=== PATIENT | male | born 1970 | race Caucasian/White ===

== ENCOUNTER → 2022-09-08 15:13 | Outpatient (BNVA) | payer OTHER, SELFPAY | PROVIDERS: PCP Family Medicine; Visit Provider Internal Medicine Endocrinology, Diabetes & Metabolism | DX: Z13.89 Encounter for screening for other disorder (principal) ==

== ENCOUNTER 2023-09-11 13:58 | Outpatient (AMB) | payer OTHER, SELFPAY ==
--- NOTE | 2023-09-11 13:59 | MHC.OFFVIS ---
Vital Signs 09/11/23 14:00 Height 5 ft 10 in Weight 155 lb 10.342 oz BMI 22.3 BP 110/62 Blood Pressure Location Lt brachial Position Sitting Pulse 70 Pulse Source Pulse Oximeter Intake Visit Reasons: f/u microprolacinoma Intake Note: Patient presents today for Microprolacinoma follow up. Help Desk Coordinator Required: No Accompanied by: Self / Same As Patient Allergies Sulfa (Sulfonamide Antibiotics) Allergy (Unknown, Verified 09/11/23 14:06) Unknown amoxicillin Adverse Reaction (Unknown, Verified 09/11/23 14:06) Unknown ibuprofen Adverse Reaction (Unknown, Verified 09/11/23 14:06) FACE SWELLING Medication List - Last Reconciled 09/11/23 by Trevor Jones MD cetirizine (Zyrtec) 10 mg PO BEDTIME PRN melatonin 5 mg PO BEDTIME PRN sildenafil 50 mg PO DAILY terbinafine HCl mg PO HPI Comments Details: This is a 51-year-old white male with a history of a micro prolactinoma. Had breast developement in R nipple. No discharge Prolactin was discovered to be 35.6 with a 4 mm pituitary micro adenoma. Testosterone was 693. Patient galactorrhea. There is loss libido. No Problem with errection . Denies headache or loss of vision. Patient denies use of neuroleptics.No hx of hypothyroidism . Have 2 children age 18 , 22 [facility] Medical History (Updated 09/08/22 @ 15:26 by Trevor Jones MD) Prolactinoma Surgical History History of circumcision as Hx of colonoscopy Family History Paternal Grandmother Dementia Maternal Grandmother Dementia Father No known health problems Mother No known health problems Paternal Grandfather Alcohol abuse Maternal Grandfather Heart disease Maternal Aunt Malignant neoplasm metastatic to breast with unknown primary site Social History Household Members: Spouse and Children Household Members Other:: (prudencio), and 2 kids Almaz and Lang Alcohol intake: current Alcohol intake frequency: other Tobacco use type: Cigar Years Smoked: 1-2 cigars per year /unkown yrs smoked total e-Cigarette/Vaping Use: Never Used Physical Exam Vital Signs: Last Vital Signs Pulse 70 09/11/23 14:00 BP 110/62 09/11/23 14:00 BMI result Body Mass Index 22.3 Const Other: There is no loss of vision by gross confrontation. There are no acromegalic features. Thyroid gland is normal size weighs about 15 g. There are no thyroid nodules palpated. Lungs are clear to auscultation . Heart is S1-S2. Abdominal exam is benign. Examination of the chest reveals the absence of any breast masses or breast tissue or discharge. Assessment & Plan Assessment & Plan (1) Prolactinoma: Code(s): D35.2 - Benign neoplasm of pituitary gland Category: Medical Plan: This 52-year-old white male with a history of micro prolactinoma with slightly elevated prolactin levels but normal gonadal axis considering normal testosterone. Reasons for treatment of the high prolactin will include bothersome galactorrhea. Prolactin level remains stable Plan is for continued observation. There is no need to treat the elevated prolactin as patient is eugonadal and does not have galactorrhea. We can use of prolactin as a biomarker for size of adenoma and can image if prolactin increases or patient becomes symptomatic. There is some literature emergent recently that treating high prolactin itself may be beneficial but at this point would simply observe the slightly elevated prolactin Coding Level of Care Code Est Pt Level 3 (46208) Diagnoses Prolactinoma D35.2
[2023-09-11 14:00] VITALS: BP 110/62; PULSE 70; BMI 22.3
== END 2023-09-11 14:28 | disposition home or self-care (01) ==
PROVIDERS: PCP Family Medicine; Visit Provider Internal Medicine Endocrinology, Diabetes & Metabolism
DX: D35.2 Benign neoplasm of pituitary gland (principal)
CPT/HCPCS: 99213

== ENCOUNTER → 2023-09-11 13:58 | Outpatient (BNVA) | payer OTHER, SELFPAY | PROVIDERS: Visit Provider Internal Medicine Endocrinology, Diabetes & Metabolism ==

== ENCOUNTER 2024-04-02 12:54 | Outpatient (AMB) | payer OTHER, SELFPAY ==
--- NOTE | 2024-04-02 12:57 | MHC.OFFVIS ---
Vital Signs 04/02/24 13:00 Height 5 ft 10 in Weight 159 lb 6.307 oz BMI 22.9 BP 112/64 Blood Pressure Location Lt brachial Position Sitting Pulse 57 Pulse Source Pulse Oximeter Intake Visit Reasons: f/u hyperprolactinemia-confirmed Intake Note: Patient present today for Hyperprolactinemia follow up. Chicle Grinder Feeder Required: No Accompanied by: Self / Same As Patient Allergies Sulfa (Sulfonamide Antibiotics) Allergy (Unknown, Verified 04/02/24 13:01) Unknown amoxicillin Adverse Reaction (Unknown, Verified 04/02/24 13:01) Unknown ibuprofen Adverse Reaction (Unknown, Verified 04/02/24 13:01) FACE SWELLING HPI Comments Details: This is a 53-year-old white male with a history of a micro prolactinoma. Had breast developement in R nipple. No discharge Prolactin was discovered to be 35.6 with a 4 mm pituitary micro adenoma. Testosterone was 693. Patient denies galactorrhea. There is loss libido. No Problem with errection . Denies headache or loss of vision. Patient denies use of neuroleptics.No hx of hypothyroidism . Have 2 children age 18 , 22 [facility] Medical History (Updated 09/08/22 @ 15:26 by Trevor Jones MD) Prolactinoma Surgical History History of circumcision as Hx of colonoscopy Family History Paternal Grandmother Dementia Maternal Grandmother Dementia Father No known health problems Mother No known health problems Paternal Grandfather Alcohol abuse Maternal Grandfather Heart disease Maternal Aunt Malignant neoplasm metastatic to breast with unknown primary site Social History Household Members: Spouse and Children Household Members Other:: (prudencio), and 2 kids Almaz and Lang Alcohol intake: current Alcohol intake frequency: other Tobacco use type: Cigar Years Smoked: 1-2 cigars per year /unkown yrs smoked total e-Cigarette/Vaping Use: Never Used Physical Exam Const Other: There is no loss of vision by gross confrontation. Assessment & Plan Assessment & Plan (1) Prolactinoma: Code(s): D35.2 - Benign neoplasm of pituitary gland Category: Medical Plan: This 53-year-old white male with a history of micro prolactinoma with slightly elevated prolactin levels but normal gonadal axis considering normal testosterone. Reasons for treatment of the high prolactin will include bothersome galactorrhea. Prolactin level remains stable Plan is for continued observation. There is no need to treat the elevated prolactin as patient is eugonadal and does not have galactorrhea. We can use of prolactin as a biomarker for size of adenoma and can image if prolactin increases or patient becomes symptomatic. Orders: Orders Testosterone, Free/Total Today D35.2 - Benign neoplasm of pituitary gland Coding Level of Care Code Est Pt Level 3 (99696) Diagnoses Prolactinoma D35.2
[2024-04-02 13:00] VITALS: BP 112/64; PULSE 57; BMI 22.9
== END 2024-04-02 13:17 | disposition home or self-care (01) ==
PROVIDERS: PCP Family Medicine; Visit Provider Internal Medicine Endocrinology, Diabetes & Metabolism
DX: D35.2 Benign neoplasm of pituitary gland (principal)
CPT/HCPCS: 99213

== ENCOUNTER 2024-09-30 12:59 | Outpatient (AMB) | payer OTHER, SELFPAY ==
--- NOTE | 2024-09-30 13:01 | A.OFFVIS_ITS ---
Vital Signs 09/30/24 13:04 Height 5 ft 10 in Weight 156 lb 4.924 oz BMI 22.4 BP 102/64 Blood Pressure Location Lt brachial Position Sitting Pulse 65 Pulse Source Pulse Oximeter Pulse Oximetry (%) 96 Oxygen Delivery Method Room Air Intake Visit Reasons: f/u hyperprolactinemia Intake Note: Patient present today for Hyperprolactinemia follow up. Medical Office Technology Instructor Required: No Accompanied by: Self / Same As Patient Allergies Sulfa (Sulfonamide Antibiotics) Allergy (Unknown, Verified 09/30/24 13:04) Unknown amoxicillin Adverse Reaction (Unknown, Verified 09/30/24 13:04) Unknown ibuprofen Adverse Reaction (Unknown, Verified 09/30/24 13:04) FACE SWELLING Medication List - Last Reconciled 09/30/24 by Trevor Jones MD fexofenadine (Judy Allergy) 180 mg PO Q24H melatonin 5 mg PO BEDTIME PRN sildenafil 50 mg PO DAILY HPI Comments Details: This is a 53-year-old white male with a history of a micro prolactinoma. Had breast developement in R nipple. No discharge Prolactin was discovered to be 35.6 with a 4 mm pituitary micro adenoma. Testosterone was 693. Patient denies galactorrhea. There is loss libido. No Problem with errection . Denies headache or loss of vision. Patient denies use of neuroleptics.No hx of hypothyroidism . Have 2 children age 18 , 22 The patient is a 53-year-old male presenting with hyperprolactinemia and a pituitary microadenoma identified previously. The current reason for the visit is the monitoring of prolactin levels and possible growth of the adenoma. The prolactin level recently increased from 35.6 ng/mL to 46 ng/mL. The patient remains asymptomatic concerning any negative clinical impact from this rise, such as headaches, vision changes, or libido issues. Headaches mentioned are not frequent and are thought to be related to caffeine consumption. His adenoma has not been reassessed via MRI for the past two years. - Neurological: Denies unusual headaches, loss of vision. - Endocrine: Denies libido issues, breast discharge, acromegaly symptoms such as enlargement of extremities or excessive sweating. [facility] Medical History (Updated 09/08/22 @ 15:26 by Trevor Jones MD) Prolactinoma Surgical History History of circumcision as Hx of colonoscopy Family History Paternal Grandmother Dementia Maternal Grandmother Dementia Father No known health problems Mother No known health problems Paternal Grandfather Alcohol abuse Maternal Grandfather Heart disease Maternal Aunt Malignant neoplasm metastatic to breast with unknown primary site Social History Household Members: Spouse and Children Household Members Other:: (prudencio), and 2 kids Almaz and Lang Alcohol intake: current Alcohol intake frequency: other Tobacco use type: Cigar Years Smoked: 1-2 cigars per year /unkown yrs smoked total e-Cigarette/Vaping Use: Never Used Physical Exam Const Other: There is no loss of vision by gross confrontation. There are no acromegalic features Assessment & Plan Assessment & Plan (1) Prolactinoma: Code(s): D35.2 - Benign neoplasm of pituitary gland Category: Medical Plan: This 53-year-old white male with a history of micro prolactinoma with slightly elevated prolactin levels but normal gonadal axis considering normal testosterone. Reasons for treatment of the high prolactin will include bothersome galactorrhea. Prolactin level remains stable with slight increase suggesting stability of the adenoma Plan is for continued observation. There is no need to treat the elevated prolactin as patient is eugonadal and does not have galactorrhea. We can use of prolactin as a biomarker for size of adenoma and can image if prolactin increases or patient becomes symptomatic. We will talk to patient about repeating another MRI of the pituitary agrees to do so. We will also check an IGF-1 level to rule out the unlikely event of course secretion of growth hormone although the patient has no features or symptoms of acromegaly. 1. Pituitary Microadenoma The patient has a known 4 mm pituitary microadenoma. With increased prolactin levels and no symptoms, further imaging via MRI is considered to rule out significant growth of the adenoma. The patient and I discussed obtaining a new MRI to ensure adenoma stability for reassurance and better future management gianfranco nning. 2. Hyperprolactinemia The patient's prolactin level has risen mildly, though currently without causing clinical symptoms or affecting testosterone levels. Continued monitoring of symptoms is advised, and MRI imaging will guide management based on any evidence of adenoma growth or stability. I discussed the patient's current prolactin levels and the importance of monitoring the pituitary adenoma. While there is a slight increase in prolactin, the patient shows no symptoms indicative of adenoma complications, such as headaches, vision changes, or endocrine dysfunction. I informed the patient about the option of MRI imaging at this point to determine if there has been any significant change since the last scan. We reviewed the potential for adenoma growth despite limited clinical risk given its 4 mm size. Furthermore, I advised immediate contact if new symptoms such as breast discharge, significant headaches, or vision changes develop. The patient was informed that while current clinical stability suggests no immediate intervention, further diagnostic imaging through MRI will clarify any necessary treatment or continued observational monitoring. - Monitor for any new symptoms such as headaches, vision changes, or nipple discharge and contact me if they occur. - Follow up with an MRI as discussed for updated evaluation of the pituitary adenoma. - Maintain awareness of prolactin test results for ongoing monitoring. - Notify me if any concerns arise before the next scheduled follow-up. - The patient had an opportunity to ask questions regarding treatment plan. The qasim linares expressed understanding and agreement with the above treatment plan. Patient was informed and verbally consented to the use of an ambient scribe for clinic note documentation during this visit. Orders: Orders IGF-1 (Somatomedin C) Today D35.2 - Benign neoplasm of pituitary gland MR head/brain wo/w con Today D35.2 - Benign neoplasm of pituitary gland Coding Level of Care Code Est Pt Level 3 (81233) Diagnoses Prolactinoma D35.2
[2024-09-30 13:04] VITALS: BP 102/64; PULSE 65; O2SAT 96; BMI 22.4
--- OUTSIDE RECORDS SUMMARY | 2024-09-30 14:03 | XMS_ITS | Clinical Summary ---
Author Organization [facility] [employer] [facility] [employer] Address [address] [place] [address] Care Team Providers Care Sql Manager Name Role Phone No, Pcp FOOD AND NUTRITION PROFESSOR Primary Care Provider Unavailabl e Social History Tobacco Use Types Packs/Day Years Used Date Smoking Tobacco: Never Assessed Sex and Gender Information Value Date Recorded Sex Assigned at Not on file Legal Sex Male 8:15 PM EST Gender Identity Not on file Sexual Orientation Not on file Plan of Treatment Health Maintenance Due Date Last Done Comments Colorectal Cancer: COLONOSCO PY Screening every 10 yrs (or Modifier) 1970 Depression: Screening Annual ly using PHQ-2/9 in Adults 18 yrs or above (or HM Modifier)([facility]) 1988 Hepatitis C Virus Infection in Adolescents and Adults: Screening (or Modifier) ([facility]) 1988 SDOH Screening Reminder: Fiona murphy for all adults ([facility]) 1988 Tobacco Smoking Cessation: i n Adults excluding Women: Behavioral and Pharmacotherapy Interventions ([facility]) 1988 Lipid Screening: Every 5 yrs for Men aged 35+ (or HM Modifier) ([facility]) 2006 Colorectal Cancer Screening 45 -75 Yrs (or HM Modifier) 11/24/2015 Colorectal Cancer: FLEXIBLE SIGMOIDOSCOPY Screening every 5 yrs 11/24/2015 Colorectal Cancer: Fecal Immunochemical Test (FIT) Annually [facility] 11/24/2015 Colorectal Cancer: High-sens itivity gFOBT Screening Annually [facility] 11/24/2015 Colorectal Cancer: Stool Col oguard Screening every 3 yrs 11/24/2015 Colorectal Cancer:CT Colonog bartolome Screening every 5 yrs 11/24/2015 Pneumococcal Vaccination Scr eening: Patients 50+ yrs of age ([facility]) (1 of 1 - PCV) 2020 Zoster/Shingles Vaccine Seri es Screening: Adults aged 18+ yrs (or HM Modifiers)([facility]) (1 of 2) 2020 COVID-19 Vaccine Screening: Initial Series and Booster Status ([facility]) ( - 2023- season) 2024 03/31/2021, 09/14/2020, 08/17/2020 Flu Vaccination: Yearly for ages 18mos through 64 years (or Modifier)([facility] ) 12/12/2024 01/28/2020, 9 DTaP/Tdap/Td Vaccines ([facility]) (2 - Td or Tdap) 12/13/2028 12/13/2018 Medical Devices Not on file Insurance [employer] Care Teams Sql Manager Relationship Specialty Start Date End Date No, Pcp, FOOD AND NUTRITION PROFESSOR N/A Do not use PCP - General Family Medicine 06/06/20
--- OUTSIDE RECORDS SUMMARY | 2024-09-30 14:03 | XMS_ITS | Clinical Summary ---
Author Organization [facility] Address [address] [place] [address] Care Team Providers Care Shipfitters Supervisor Name Role Phone Unavailable Primary Care Provider Unavailabl e Source Comments PLEASE NOTE, if this patient is a minor, it may be UNLAWFUL to discuss sensitive information that is contained in these records (such as FAMILY PLANNING, MENTAL HEALTH or SUBSTANCE ABUSE) with the minor patient's parent or other person without the patient's specific authorization.[facility] Immunizations Immunization Administration Dates Next Due Moderna COVID-19 Vaccine, re d cap blue label, 12+ Primary Series 09/14/2020,08/17/2020 Social History Tobacco Use Types Packs/Day Years Used Date Smoking Tobacco: Never Assessed Social Connections Answer Date Recorded Social Connections and Isolation 0 08/17/2020 Financial Resource Strain Answer Date R ecorded Financial Resource Strain 0 2020 Stress Answer Date Recorded Stress 0 08/17/2020 Physical Activity Answer Date Recorded Physical Activity 0 08/17/2020 Food Insecurity Answer Date Recorded Food 0 08/17/2020 Transportation Needs Answer Date Record ed Transportation 0 08/17/2020 Housing Stability Answer Date Recorded Housing 0 08/17/2020 Safety and Environment Answer Date Cristofer rded Safety 0 08/17/2020 Utilities Answer Date Recorded Utilities 0 08/17/2020 Employment Answer Date Recorded Employment 0 08/17/2020 Sex and Gender Information Value Date Recorded Sex Assigned at Not on file Legal Sex Male 6:04 AM PDT Gender Identity Not on file Sexual Orientation Not on file Plan of Treatment Health Maintenance Due Date Last Done Comments Anxiety Screening 1970 Diabetes Screening 1970 Hepatitis C Screening 1970 Lipid Screening 1970 Tobacco Screening 1970 HIV Screening 1985 Hypertension Screening (#1) 1988 Imm-Hepatitis B (1 of 3 - 19 + 3-dose series) 1989 CT Colonography 11/24/2015 Colonoscopy 11/24/2015 Colorectal Cancer Screening 11/24/2015 FIT/gFOBT 11/24/2015 Fecal DNA 11/24/2015 Flexible Sigmoidoscopy 11/24/2015 Imm-Zoster, Recombinant (1 of 2) 2020 [id number] (3 - season) 2024 021, 08/17/2020 Imm-Influenza (#1) 2024 01/28/2020, 0 01/23/2019, 02/07/2017, Additional history exists Alcohol and Drug Screen 05/14/2024 Depression Annual Screen 05/14/2024 Imm-DTaP/Tdap/Td (2 - Td or Tdap) 12/13/2028 019, 05/14/2006 Insurance [facility] Member Subscriber Plan / Payer (Ef fective 2015-Present) Name:León Asif Relation to Subscriber:Self Name:León Asif Payer ID:[id number] Group ID:Not on file Type:Indemnity Address: [address] [place] [address]
--- OUTSIDE RECORDS SUMMARY | 2024-09-30 14:03 | XMS_ITS ---
Author Organization [facility] Address [address] [place] [address] Care Team Providers Care Benefits Director Name Role Phone Tyrell Stovall Primary Care Provider Unavailabl e Black, Mara Unavailable [phone] Allergies Allergen (clinical drug ingredient) Drug/Non Drug Allergy documented on EMR Reaction Allergy Type Onset Date Status ibuprofen Advil hives Drug Allergy Active Motrin hives Drug Allergy Active amoxicillin Amoxicillin hives Drug Allergy Act lacey Penicillin hives Drug Allergy Active Substance with sulfonamide structure and antibacterial mechanism of action (substance) Sulfa Antibiotics hives Drug Allergy Active REASON FOR VISIT Painful nail(s) aggrevated by shoes causing difficulty standing/walking Medications Medication SIG (Take, Route, Frequency, Duration) Notes Start Date End Date Status Terbinafine HCl 250 MG 1 tablet Orally O nce a day for 7 days days then stop for 3 weeks repeat cycle for 90 days PRN 06/06/2023 Not-Taking Melatonin 3-5MG Active ZyrTEC 5MG Not-Taking Benadryl prn Not-Taking Judy Active Social History Tobacco Use: Social History Observation Description Date Details (start date - stop date) Never Smoker NA - NA Alcohol Screen Question Answer Notes Did you have a drink contain ing alcohol in the past year? Yes How often did you have a dri nk containing alcohol in the past year? 2 to 4 times a month (2 points) Points 2 Interpretation Negative Tobacco use other than smoking: Question Answer Notes Are you an other tobacco user? No Tobacco Control (Standard) Question Answer Notes Tobacco use: Nonsmoker Additional Findings: Tobacco non-user Current no nsmoker Vital Signs Height 5FT 10IN in 07/01/2024 Weight 155 lbs 07/01/2024 BMI 22.24 kg/m2 07/01/2024 Blood pressure systolic 126 mm Hg 07/01/19 25 Blood pressure diastolic 70 mm Hg 025 Encounters Encounter Location Date Provider Diagnosis [facility] [address] 07/01/2024 Mara Wolff Pain in right toe(s) M79.674 and Tinea unguium B35.1 Assessments Encounter Date Diagnosis (ICD Code) Assessment Notes Treatment Notes Treatment Clinical Notes Section Notes 07/01/2024 Pain in right toe(s) (ICD-10 - M79.674) 07/01/2024 Tinea unguium (ICD-10 - B35.1) Plan Of Treatment Next Appt Details Follow Up: prn, Reason: Progress Notes * Laura ASIFOB:1970 ( 53 yo M)Acc No.[id number]:07/01/2024 Progress Note Patient:?YEFRI León Provider:?Mara Wolff DPM :1970???Age:53 Y???Sex:Male Sreekanth e:07/01/2024 Address:[address] [place] [id number] Pcp:Tyrell Stovall Subjective: * Chief Complaints: * ???Painful nail(s) aggrevate d by shoes causing difficulty standing/walking * HPI: ???Painful Nails:?Pt States Last PCP Visit:?Date:?06/16/2024 ?Course:?improved , 80%.?Treatments:?fungi cure (presently still using) , Lamisil , Pulse Dose PO Antifungal Treatment ,Pt finished the medication 04/2024.? * ROS:?General/Constitutional:?Nausea?denies.?Vomiting?denies.?Hunger Thirst?denies.?Loss appetite?denies.?Chills?denies.?Fatigue?denies.?Fever?denies.?Night Sweats?denies.?Unexplained weight loss?denies.?Unexplained weight gain?denies.?HEENTM:?Dentures?denies.?Dizziness?denies.?Glasses/contacts?denies.?Retinopathy?de nies.?Blurred/double vision?denies.?TMJ?denies.?Discharge/drainage?denies.?Implants?denies.?Sore throat?denies.?Dental implants?denies.?Hard of hearing ?denies.?Difficulty chewing/swallowing/speaking?denies.?Nose bleeds?denies.?Sore mouth?denies.?Respiratory:?On Oxygen?denies.?Pneumonia/pleurisy?denies.?Bronchitis?denies.?Emphysema?denies.?C oughing?denies.?Cough blood?denies.?Shortness of breath?denies.?Wheezing?denies.?Cardiovascular:?Pacemaker?denies.?MVP?denies.?WPW?denies.?CHF?denies.?Heart attack?denies.?Septal defect?denies.?Rapid beat?denies.?Chest pain ?denies.?Atrial Fib.?denies.?Murmur/Palpitations?denies.?Gastrointestinal:?Hemorrhoids?denies.?Stomach/Abdominal pain?denies.?Dark blood stool?denies.?Irritable bowel ?denies.?Constipation?denies.?Diarrhea?denies.?Hematology:?Swelling?denies.?Clots?denies.?Varicose Veins?denies.?Bruising?denies.?Bleeding problem?denies.?Genitourinary:?Blood urine?denies.?Frequent/Painfu/urination/bladder control?denies.?Kidney stones?denies.?Infection (UTI)?denies.?Nephropathy?denies.?sex trans dis (STD)?denies.?Prostate?denies.?Musculoskeletal:?Hammertoes?admits.?Bunions?denies.?Back Pain?denies.?Muscle Cramps/ Resting?denies.?Muscle cramps / walking?denies.?Generalized aches and pains?denies.?Weakness?denies.?Integ.:?Reid?denies.?Scars?denies.?Corns/calluses?denies.?Ingrown nails?denies.?Painful nails?admits.?Open Sores?denies.?Rashes?denies.?Neurologic:?Difficulty sleeping?denies.?Brain disorder?denies.?Numbness?denies.?Balance trouble?denies.?Confusion?denies.?Fainting/blackouts?denies.?Tingling?denies.?Tr emors?denies.? * Medical History:? * Surgical History:?hemorrhoid ectomy 07/2022 * Hospitalization/Major Diagno stic Procedure:?No Hospitalization History. * Family History:?Mother: bahman iraheta.?Father: alive.?Spouse: alive.?Maternal Grand Father: diagnosed with Unspecified essential hypertension.? * Social History:?Tobacco Use:?Tobacco use other than smoking?Are you an other tobacco user??No ?Tobacco Control (Standard)?Tobacco use:?Nonsmoker ?Additional Findings: Tobacco non-user?Current nonsmoker ???Drugs/Alcohol:?Drugs?Have you used drugs other than those for medical reasons in the past 12 months??No ?Alcohol Screen?Did you have a drink containing alcohol in the past year??Yes ?How often did you have a drink containing alcohol in the past year??2 to 4 times a month (2 points) ?Points?2 ?Interpretation?Negative ???Miscellaneous:?Caffeine: no. ?Exercise: yes, outdoor activities. ?Marital status: . 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 * Medications:?TakingAllegra M elatonin , Notes to Pharmacist: 3-5MGTaking Judy Taking Melatonin , Notes to Pharmacist: 1-2DGHpg-Ecvqzi/PRNTerbinafine HCl 250 MG Tablet 1 tablet Orally Once a day for 7 days days then stop for 3 weeks repeat cycle , Notes to Pharmacist: PRNBenadryl , Notes to Pharmacist: prnZyrTEC , Notes to Pharmacist: 5MGMedication List reviewed and reconciled with the patientNot- Taking/PRN Terbinafine HCl 250 MG Tablet 1 tablet Orally Once a day for 7 days days then stop for 3 weeks repeat cycle , Notes to Pharmacist: PRNNot-Taking/PRN Benadryl , Notes to Pharmacist: prnNot-Taking/PRN ZyrTEC , Notes to Pharmacist: 5MGMedication List reviewed and reconciled with the patient * Allergies:?Penicillin: hives Sulfa Antibiotics: hivesAdvil: hivesMotrin: hivesAmoxicillin: hivesyes[Allergies Verified] Objective: * Vitals:?Ht: 5FT 10IN, Wt:155 , BMI:22.24, Shoe size: 9, BP:126/70mm Hg, Ht-cm: 177.8 cm, Wt-k.31 kg. * Examination: ???General Examination: ?GENERAL APPEARANCE:?Reveals a pleasant, alert, well nourished, well- developed, well hydrated individual, who demonstrates proper attention to hygiene/body habitus, and is in no acute distress, Pt serves as own historian for office visit today.?Vascular: ?DP PULSES (B):?3/4, B/L.?PT PULSES (B):?3/4, B/L.?Dermatologic: ?SKIN FINDINGS:?Skin exam reveals normal color, texture, elasticity, and turgor. There are no masses, nor excrescences. The interspaces are clear, B/L.?Nails: ?NAILS are:?Elongated, overgrown, dystrophic, lytic, greater than 3mm thick, discolored and friable with crumbly malodorous subungual debris, with pain on palpation , T5, proximal clearing of nail approximately 80?all other nails not described with characteristics as possessing mycosis are 100% clear.? Assessment: * Assessment: 1.?Pain in right toe(s) - M7 9.674???2.?Tinea unguium - B35.1 (Primary)??? Plan: * Treatment: * Procedure Codes:? * Preventive Medicine:? ??Counseling:?Discussion:?-12: Office or other outpatient visit for the evaluation and management of an established patient, which required a medically appropriate history and/or examination and STRAIGHTFORWARD level of MEDICAL DECISION MAKING, 1 SELF-LIMITED OR MINOR PROBLEM, MINIMAL- NO AMOUNT/COMPLEXITY OF DATA TO BE REVIEWED/ANALYZED, AND MINIMAL RISK OF COMPLICATION/MORBIDITY. The visit on the day of the encounter encompassed interpreting the data and educating the patient as to the nature of their condition, treatment options available according to their individual PMH, meds, allergies, and overall health/living conditions, as well as any potential risks or complications that may occur from a failure to adhere to, and participate in, the recommended course of therapy. The discussion included a complete verbal, and/or written explanation of the examination results, any x-rays taken, the proposed diagnosis, and outline of the treatment plan. A schedule for future care needs was also explained. The patient verbalized an understanding of the instructions at this time and agreed to be an active participant in their treatment. If the patient should think of any questions or concerns after the visit, I have encouraged the patient to call the office, Given recent successful results to treatment, The patient wishes to continue with the present treatment plan for their condition and apply topical medication till T5 has complete resolution.? ??Screening/Special Tests:?Fall Risk?Screening:?No falls in the past year ?FALLS: Screening for Future Fall Risk?Have you had any falls with injury in the past year??No * Follow Up:?prn * Images: * Sign off status: Completed true * Provider:?MARU StricklandM Date:?2024 Generated for Avinash ballesteros/Ebenezer/eTleonardsmitting on:?09/30/2024 02:03 PM EDT History and Physical Notes * HPI (History of Present Illness) Category Sub-Category Detail Notes Category Not es Painful Nails Course: improved , 80% Treatments: fungi cure (presentl y still using) , Lamisil , Pulse Dose PO Antifungal Treatment ,Pt finished the medication 04/2024 Pt States Last PCP Visit: Date:: 06/16/2024 Examination Category Sub-Category Detail Notes Category Not es Dermatologic SKIN FINDINGS: Skin exam reveal s normal color, texture, elasticity, and turgor. There are no masses, nor excrescences. The interspaces are clear, B/L Orthopedic FOOTWEAR EVALUATION: DIGITAL DEFORMITIES: General Examination GENERAL APPEARANCE: Reveals a pleasant, alert, well nourished, well-developed, well hydrated individual, who demonstrates proper attention to hygiene/body habitus, and is in no acute distress, Pt serves as own historian for office visit today Vascular DP PULSES (B): 3/4, B/L PT PULSES (B): 3/4, B/L Nails NAILS are: Elongated, overg rown, dystrophic, lytic, greater than 3mm thick, discolored and friable with crumbly malodorous subungual debris, with pain on palpation , T5, proximal clearing of nail approximately 80 all other nails not described with characteristics as possessing mycosis are 100% clear
--- OUTSIDE RECORDS SUMMARY | 2024-09-30 14:03 | XMS_ITS | Patient Health Record ---
Author Organization [facility] Address [address] [place] [address] Care Team Providers Care Manager Fund Name Role Phone Tyrell Stovall Primary Care Provider Unavailabl e Black, Mara Unavailable [phone] Allergies Allergen (clinical drug ingredient) Drug/Non Drug Allergy documented on EMR Reaction Allergy Type Onset Date Status ibuprofen Advil hives Drug Allergy Active Motrin hives Drug Allergy Active amoxicillin Amoxicillin hives Drug Allergy Act lacey Penicillin hives Drug Allergy Active Substance with sulfonamide structure and antibacterial mechanism of action (substance) Sulfa Antibiotics hives Drug Allergy Active Reason For Referral No Information Medications Medication SIG (Take, Route, Frequency, Duration) [...] Additional Findings: Tobacco non-user Current no nsmoker Problems Problem Type SNOMED Code ICD Code Onset Dates Problem Status W/U Status Risk Notes Problem Acquired hammer toe of right foot (6916807411106919 ) Other hammer toe(s) (acquired), right foot (M20.41) Active confirmed Response to treatment - Improvement Problem Localized, primary osteoarthritis of the ankle and/or foot (741180755) Arthritis of joint of lesser toe, right (M19.071) Active confirmed Vital Signs Blood pressure diastolic 70 mm Hg 07/01/2024 Height 5FT 10IN in 07/01/2024 Blood pressure systolic 126 mm Hg 07/01/2024 Weight 155 lbs 07/01/2024 BMI 22.24 kg/m2 07/01/2024 Encounters Encounter Location Date Provider Diagnosis [address] [address] 12/05/2023 Mara Black Pain in right toe(s) M79.674 ; Tinea unguium B35.1 ; Other hammer toe(s) (acquired), right foot M20.41 ; Arthritis of joint of lesser toe, right M19.071 and Pain in left toe(s) M79.[address] [address] 02/27/2024 Mara Black Pain in right toe(s) M79.674 ; Tinea unguium B35.1 ; Other hammer toe(s) (acquired), right foot M20.41 ; Arthritis of joint of lesser toe, right M19.071 and Pain in left toe(s) M79.[address] [address] 07/01/2024 Mara Black Pain in right toe(s) M79.674 and Tinea unguium B35.1 Assessments Encounter Date Diagnosis (ICD Code) Assessment Notes Treatment Notes Treatment Clinical Notes Section Notes 12/05/2023 Pain in right toe(s) (ICD-10 - M79.674) 02/27/2024 Pain in right toe(s) (ICD-10 - M79.674) 07/01/2024 Pain in right toe(s) (ICD-10 - M79.674) 07/01/2024 Tinea unguium (ICD-10 - B35.1) 12/05/2023 Other hammer toe(s) (acquired), right foot (ICD-10 - M20.41) 02/27/2024 Tinea unguium (ICD-10 - B35.1) 12/05/2023 Tinea unguium (ICD-10 - B35.1) 12/05/2023 Arthritis of joint of lesser toe, right (ICD-10 - M19.071) 02/27/2024 Other hammer toe(s) (acquired), right foot (ICD-10 - M20.41) 02/27/2024 Arthritis of joint of lesser toe, right (ICD-10 - M19.071) 12/05/2023 Pain in left toe(s) (ICD-10 - M79.675) 02/27/2024 Pain in left toe(s) (ICD-10 - M79.675) Plan Of Treatment Pending Test Test Name Order Date *Liver Function Test (LFT) 09/05/2023 Insurance Providers Payer Name Payer Address Payer Phone Subscriber Number Group Number Insured Name Patient Relationship to Insured Coverage Start Date Coverage End Date [facility] ([facility] [address] [place] [address] [id number] Brie Olivas Spouse - patient is the spouse of the insured Medical (General) History Medical History History ICD Code covid-19 Gout Warts Chicken pox Surgical History Surgery Date(Month/Year) hemorrhoidectomy 07/2022
--- OUTSIDE RECORDS SUMMARY | 2024-09-30 14:04 | XMS_ITS | Clinical Summary ---
Author Organization [facility] Address [address] [place] [id number] Phone Care Team Providers Care Bunch Trimmer Mold Name Role Phone Tyrell Stovall MD Primary Care Provider [phone] Allergies Active Allergy Reactions Criticality Noted Date Comments Amoxicillin Rash,Unknown Low 06/11/2013 Ibuprofen Swelling 10/14/2022 Sulfa (Sulfonamide Antibiotics) Unknown 05/15 Medications cetirizine (ZYRTEC) 10 MG tablet 5 mg daily. 08/04/2022 Active melatonin 5 mg Tab daily. Active Active Problems No known active problems Social History Tobacco Use Types Packs/Day Years Used Date Smoking Tobacco: Never Smokeless Tobacco: Never Tobacco Cessation:Counseling Given: Not Answered Alcohol Use Standard Drinks/Week Comments Yes 3 (1 standard drink = 0.6 oz pur e alcohol) Education Answer Date Recorded Are you interested in more education? Not on umu e 10/14/2022 Are you concerned about learning? Not on file 10/14/2022 No 10/14/2022 No 10/14/2022 Digital Access Answer Date Recorded No 10/14/2022 No 10/14/2022 Reliable internet access at home? Not on file 10/14/2022 Device with a working camera? Not on file Intimate Partner Violence Answer Date R ecorded Are you denied basic needs s uch as food, clothing, or medical care? No 10/14/2022 In the past 12 months have y ou been in a relationship with a person who hurts, threatens, or tries to control you? No 10/14/2022 Are you denied basic needs s uch as food, clothing, or medical care? No 10/14/2022 In the past 12 months have y ou been in a relationship with a person who hurts, threatens, or tries to control you? No 10/14/2022 Sex and Gender Information Value Date Recorded Sex Assigned at Not on file Legal Sex Male 5:18 PM EDT Gender Identity Not on file Sexual Orientation Not on file Last Filed Vital Signs Vital Sign Reading Time Taken Comments Blood Pressure 134/88 10/14/2022 5:28 PM EDT Pulse 53 10/14/2022 5:28 PM EDT Temperature 36.3 ??C (97.3 ??F) 10/14/2022 5:28 PM ED T Respiratory Rate 16 10/14/2022 5:28 PM EDT Oxygen Saturation 100% 10/14/2022 5:28 PM EDT Inhaled Oxygen Concentration - - Weight 70.3 kg (155 lb) 10/14/2022 5:28 PM EDT Height 177.8 cm (5' 10 ) 10/14/2022 5:28 PM EDT Body Mass Index 22.24 10/14/2022 5:28 PM EDT Plan of Treatment Health Maintenance Due Date Last Done Comments LIPID PANEL 1970 DEPRESSION SCREENING 1982 HEPATITIS B SCREENING 1988 HEPATITIS C SCREENING 1988 HIV ONE-TIME SCREENING (18-65 YEARS) 1988 HEPATITIS B VACCINES (1 of 3 - 19+ 3-dose series) 1989 COLOGUARD 11/24/2015 COLONOSCOPY 11/24/2015 COLORECTAL CANCER SCREENING 11/24/2015 FIT TEST 11/24/2015 FOBT 11/24/2015 SIGMOIDOSCOPY 11/24/2015 VIRTUAL COLONOSCOPY 11/24/2015 PNEUMOCOCCAL VACCINES (50+ years) (1 of 1 - PCV) 2020 ZOSTER VACCINES (1 of 2) 2020 INFLUENZA VACCINE (#1) 2023 , 02/10/2021, 01/28/2020, Additional history exists COVID-19 VACCINE ( season) 2024 02/10/2022, 03/31/2021, 09/14/2020, Additional history exists Adult Td,Tdap Booster 12/13/2028 12/13/2018, 007 SMOKING STATUS SCREENING (Once After 26 Yrs) Completed 10/14/2022 HEPATITIS A VACCINES Aged Out No long er eligible based on patient's age to complete this topic HIB VACCINES Aged Out No longer eligi ble based on patient's age to complete this topic MENINGOCOCCAL VACCINES (ACWY) Aged Out No longer eligible based on patient's age to complete this topic Medical Devices Not on file Insurance [employer] [facility] [employer] [facility] [employer] CHO[employer] Care Teams Bunch Trimmer Mold Relationship Specialty Start Date End Date Tyrell Stovall MD [address] [phone] PCP - General Family Medicine 10/14/22 Additional Source Comments The information contained in this document represents components of the legal health record. It is not the complete legal health record.[facility]
--- OUTSIDE RECORDS SUMMARY | 2024-09-30 14:04 | XMS_ITS | Encounter Summary ---
Author Organization [facility] Address [address] [place] [id number] Phone Care Team Providers Care Acute Care Registered Nurse Name Role Phone Tyrell Stovall MD Primary Care Provider [phone] Encounter Details Date Type Department Care Team ([facility] st Contact Info) Description 10/14/2022 Ophth Exam [facility] [address] [place] [address] Ari Miller MD, PhD [address] [place] [id number] [email or web address] Social History Tobacco Use Types Packs/Day Years Used Date Smoking Tobacco: Never Smokeless Tobacco: Never Alcohol Use Standard Drinks/Week Comments Yes 3 [...] on file Sexual Orientation Not on file documented as of this encounter Functional Status * Calculated C-SSRS Risk Score (Lifetime/Recent) Answer Date of Assessment Author No Risk Indicated 10/14/2022 5:26 PM EDT Alisha Wen RN * White Suicide Severity Rating Scale (Screener/Recent Self-Report) Question Answer Date of Assessment Author 1. Wish to be (Past 1 Month) No 10/14/2022 5:26 PM EDT Mary Lyles RN 2. Non-Specific Active Suicidal Thoughts (Past 1 Month) No 10/14/2022 5:26 PM EDT Mary Lyles RN 6. Suicidal Behavior (Lifetime) No 10/14/2022 5:26 PM EDT Mary Lyles RN documented as of this encounter Plan of Treatment Not on file documented as of this encounter Visit Diagnoses Not on filedocumented in this encounter Care Teams Acute Care Registered Nurse Relationship Specialty Start Date End Date Tyrell Stovall MD [address] [phone] PCP - General Family Medicine 10/14/22 documented as of this encounter Additional Source Comments The information contained in this document represents components of the legal health record. It is not the complete legal health record.[facility]
--- OUTSIDE RECORDS SUMMARY | 2024-09-30 14:04 | XMS_ITS ---
Author Organization [facility] Barneveld Address [address] [place] [address] Care Team Providers Care Software Development Engineer Name Role Phone Tyrell Stovall Primary Care Provider Unavailabl e Black, Mara Unavailable [phone] Allergies Allergen (clinical drug ingredient) Drug/Non Drug Allergy documented on EMR Reaction Allergy Type Onset Date Status ibuprofen Advil hives Drug Allergy Active Motrin hives Drug Allergy Active amoxicillin Amoxicillin hives Drug Allergy Act lacey Penicillin hives Drug Allergy Active Substance with sulfonamide structure and antibacterial mechanism of action (substance) Sulfa Antibiotics hives Drug Allergy Active REASON FOR VISIT Painful Toe(s), Painful nail(s) aggrevated by shoes causing difficulty standing/walking Medications Medication SIG (Take, Route, Frequency, Duration) Notes Start Date End Date Status ZyrTEC 5MG Not-Taking Terbinafine HCl 250 MG 1 tablet Orally O nce a day for 7 days days then stop for 3 weeks repeat cycle for 90 days PRN 06/06/2023 Active Judy Active Benadryl prn Not-Taking Melatonin 3-5MG Active Social History Tobacco Use: Social History Observation Description Date Details (start date - stop date) Never Smoker NA - NA Tobacco Use/Smoking Question Answer Notes Are you a: nonsmoker Additional Findings: Tobacco Non-User Current no n-smoker Alcohol Screen Question Answer Notes Did you have a drink contain ing alcohol in the past year? Yes How often did you have a dri nk containing alcohol in the past year? 2 to 4 times a month (2 points) Points 2 Interpretation Negative Tobacco use other than smoking: Question Answer Notes Are you an other tobacco user? No Vital Signs Weight 155 lbs 02/27/2024 BMI 22.24 kg/m2 02/27/2024 Encounters Encounter Location Date Provider [facility] [address] 02/27/2024 Mara Wolff Pain in right toe(s) M79.674 ; Tinea unguium B35.1 ; Other hammer toe(s) (acquired), right foot M20.41 ; Arthritis of joint of lesser toe, right M19.071 and Pain in left toe(s) M79.675 Assessments Encounter Date Diagnosis (ICD Code) Assessment Notes Treatment Notes Treatment Clinical Notes Section Notes 02/27/2024 Pain in right toe(s) (ICD-10 - M79.674) 02/27/2024 Tinea unguium (ICD-10 - B35.1) 02/27/2024 Other hammer toe(s) (acquired), right foot (ICD-10 - M20.41) 02/27/2024 Arthritis of joint of lesser toe, right (ICD-10 - M19.071) 02/27/2024 Pain in left toe(s) (ICD-10 - M79.675) Plan Of Treatment Next Appt Details Follow Up: prn, Reason: Progress Notes * Laura ASIFOB:1970 ( 53 yo M)Acc No.[id number]:02/27/2024 Progress Note Patient:?Yefri León Provider:?Mara Wolff DPM :1970???Age:53 Y???Sex:Male Sreekanth e:02/27/2024 Address:[address] [place], [place] [id number] Pcp:Tyrell Stovall Subjective: * Chief Complaints: * ???Painful Toe(s)Painful bartolo l(s) aggrevated by shoes causing difficulty standing/walking * HPI: ???Painful Nails:?Pt States Last PCP Visit:?Date:?06/27/2023 ?Course:?improved , unresolved.?Treatments:?fungi cure , Lamisil , Pulse Dose PO Antifungal Treatment , relates adherence to recom tx , (i.e. rash, hives, taste/GI disturbance, yellow skin/eye discoloration, discolored stools, or any other unusual bodily complaints) DOS- 05/2023.?Toe pain:?Nature:?tenderness.?Location:?Right foot , 4th toe.?Duration:?several months.?Course:?, improved , at _90? percent.?Aggravated by:?any pressure, shoes.?Treatments:?change in shoes , bracing/splinting/padding.? * ROS:?General/Constitutional:?Nausea?denies.?Vomiting?denies.?Hunger Thirst?denies.?Loss appetite?denies.?Chills?denies.?Fatigue?denies.?Fever?denies.?Night Sweats?denies.?Unexplained weight loss?denies.?Unexplained [...] Procedure:?No Hospitalization History. * Family History:?Mother: bahman carrillo?Father: alive.?Spouse: alive.?Maternal Grand Father: diagnosed with Unspecified essential hypertension.? * Social History:?Tobacco Use:?Tobacco Use/Smoking?Are you a:?nonsmoker ?Additional Findings: Tobacco Non-User?Current non-smoker ?Tobacco use other than smoking?Are you an other tobacco user??No ???Drugs/Alcohol:?Drugs?Have you used drugs other than those for medical reasons in the past 12 months??No ?Alcohol Screen?Did you have a drink containing alcohol in the past year??Yes ?How often did you have a drink containing alcohol in the past year??2 to 4 times a month (2 points) ?Points?2 ?Interpretation?Negative ???Miscellaneous:?no Caffeine. ?Exercise: yes, outdoor activities. ?Marital status: . 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 * Medications:?TakingAllegra Yfn crabtree , Notes: 3-5MGTerbinafine HCl 250 MG Tablet 1 tablet Orally Once a day for 7 days days then stop for 3 weeks repeat cycle, Notes: PRNTaking Judy Taking Melatonin , Notes: 3-5MGTaking Terbinafine HCl 250 MG Tablet 1 tablet Orally Once a day for 7 days days then stop for 3 weeks repeat cycle, Notes: PRNNot-Taking/PRNBenadryl , Notes: prnZyrTEC , Notes: 5MGMedication List reviewed and reconciled with the patientNot-Taking/PRN Benadryl , Notes: prnNot-Taking/PRN ZyrTEC , Notes: 5MGMedication List reviewed and reconciled with the patient * Allergies:?Penicillin: hives Sulfa Antibiotics: hivesAdvil: hivesMotrin: hivesAmoxicillin: hivesyes[Allergies Verified] Objective: * Vitals:?Wt:155, BMI:22.24, S hoe size:9, Ht-cm: 177.8 cm, Wt-k.31 kg. * Examination: ???General Examination: ?GENERAL APPEARANCE:?Reveals a pleasant, alert, well nourished, well- developed, well hydrated individual, who demonstrates proper attention to hygiene/body habitus, and is in no acute distress, Pt serves as own historian for office visit today.?Vascular: ?DP PULSES(B):?3/4, B/L.?PT PULSES(B):?3/4, B/L.?Dermatologic: ?SKIN FINDINGS:??Skin exam reveals Resolved? Keratotic lesion(s) located at , PIPJ , T8?.?Orthopedic: ?DIGITAL DEFORMITIES:?Digital contracture, PIPJ, 2-5 B/L, incompl-reducible with WB, or to push-up test, no over, nor underlapping , Reveals RESOLVED pain/swelling/redness/enlargement of PIPJ plantar lateral , T8.?Nails: ?NAILS are:?Elongated, overgrown, dystrophic, lytic, greater than 3mm thick, discolored and friable with crumbly malodorous subungual debris, with pain on palpation , 1-5 Right foot , 1,3-5 Left foot , proximal clearing of nail 85 percent.? Assessment: * Assessment: 1.?Pain in right toe(s) - M7 9.674?2.?Tinea unguium - B35.1 (Primary)?3.?Other hammer toe(s) (acquired), right foot - M20.41?4.?Arthritis of joint of lesser toe, right - M19.071?5.?Pain in left toe(s) - M79.675? Plan: * Treatment: * Procedure Codes:? * Preventive Medicine:? ??Counseling:?Discussion:?-13: Office or other outpatient visit for the evaluation and management of an established patient, which required a medically appropriate history and/or examination and LOW level of DECISION MAKING for: 1 STABLE ACUTE UNCOMPLICATED PROBLEM, 2 OR MORE MINOR PROBLEMS, OR 1 STABLE CHRONIC PROBLEM, THAT POSE(S) A LOW RISK FOR MORBIDITY/MORTALITY. The visit on the day of the [...] have encouraged the patient to call the office.?F/U Fungal nails:?Given recent successful results to treatment, The patient is to cont the rx topical medication and oral medications as directed till nail grows out, Nail debridement performed extensively to reduce/remove overall nail length and girth, subungual debris, and necrotic tissue, by manual and electrical means with use of a nail nipper and/or dremel, to more viable healthy nail plate or bed tissue. Silver nitrate used for any petechial bleeding as necessary.?F/u Visit:?Patients podiatric issue has improved, they should call the office with any future issues or concerns.? * Follow Up:?prn * Images: * Sign off status: Completed true * Provider:?Mara Wolff DPM Date:?2023 Generated for Avinash ballesteros/Ebenezer/Gabriella on:?09/30/2024 02:03 PM EDT History and Physical Notes * HPI (History of Present Illness) Category Sub-Category Detail Notes Category Not es Toe pain Nature: tenderness Location: Right foot , 4th toe Duration: several months Course: , improved , at _90 percent Aggravated by: any pressure, shoes Treatments: change in shoes , br acing/splinting/padding Painful Nails Course: improved , unresolved Treatments: fungi cure , Lamisil , Pulse Dose PO Antifungal Treatment , relates adherence to recom tx , (i.e. rash, hives, taste/GI disturbance, yellow skin/eye discoloration, discolored stools, or any other unusual bodily complaints) DOS- 05/2023 Pt States Last PCP Visit: Date:: 06/27/2023 Examination Category Sub-Category Detail Notes Category Not es Dermatologic SKIN FINDINGS: Skin exam reveal s Resolved Keratotic lesion(s) located at , PIPJ , T8 Orthopedic FOOTWEAR EVALUATION: DIGITAL DEFORMITIES: Digital contracture , PIPJ, 2-5 B/L, incompl-reducible with WB, or to push-up test, no over, nor underlapping , Reveals RESOLVED pain/swelling/redness/enlargement of PIPJ plantar lateral , T8 General Examination GENERAL APPEARANCE: Reveals a pleasant, [...] subungual debris, with pain on palpation , 1-5 Right foot , 1,3-5 Left foot , proximal clearing of nail 85 percent
--- OUTSIDE RECORDS SUMMARY | 2024-09-30 14:04 | XMS_ITS ---
Author Organization [facility] Address [address] [place] [address] Care Team Providers Care Tax Economist Name Role Phone Tyrell Stovall Primary Care Provider Unavailabl e Black, Mara Unavailable [phone] Allergies Allergen (clinical drug ingredient) Drug/Non Drug [...] difficulty standing/walking Medications Medication SIG (Take, Route, Fr equency, Duration) Notes Start Date End Date Status ZyrTEC 5MG Active Melatonin 3-5MG Active Terbinafine HCl 250 MG 1 tablet Orally O nce a day for 7 days days then stop for 3 weeks repeat cycle for 90 days 06/06/2023 Active Benadryl prn Active Social History Tobacco Use: Social History Observation Description Date Details (start date - stop date) Never Smoker NA - NA Tobacco Use/Smoking Question Answer Notes Are you a: nonsmoker Alcohol Screen Question Answer Notes Did you have a drink contain ing alcohol in the past year? Yes How often did you have a dri nk containing alcohol in the past year? 2 to 4 times a month (2 points) Points 2 Interpretation Negative Tobacco use other than smoking: Question Answer Notes Are you an other tobacco user? No Vital Signs Height 5ft 10in in 12/05/2023 Weight 155 lbs 12/05/2023 BMI 22.24 kg/m2 12/05/2023 Encounters Encounter Location Date Provider Diagnosis [facility] [address] 12/05/2023 Mara Wolff Pain in right toe(s) M79.674 ; Tinea unguium B35.1 ; Other hammer toe(s) (acquired), right foot M20.41 ; Arthritis of joint of lesser toe, right M19.071 and Pain in left toe(s) M79.675 Assessments Encounter Date Diagnosis (ICD Code) Assessment Notes Treatment Notes Treatment Clinical Notes Section Notes 12/05/2023 Pain in right toe(s) (ICD-10 - M79.674) 12/05/2023 Tinea unguium (ICD-10 - B35.1) 12/05/2023 Other hammer toe(s) (acquired), right foot (ICD-10 - M20.41) 12/05/2023 Arthritis of joint of lesser toe, right (ICD-10 - M19.071) 12/05/2023 Pain in left toe(s) (ICD-10 - M79.675) Plan Of Treatment Next Appt Details Follow Up: prn, Reason: Progress Notes * YEFRI LauraOB:1970 ( 53 yo M)Acc No.[id number]:12/05/2023 Progress Note Patient:?Brandy Asifh Provider:?Mara Wolff DPM :1970???Age:53 Y???Sex:Male Sreekanth e:12/05/2023 Address:[address] [place] [id number] Pcp:Tyrell Stovall Subjective: * Chief Complaints: * ???Painful Toe(s)Painful bartolo l(s) aggrevated by shoes causing difficulty standing/walking * HPI: ???Painful Nails:?Pt States Last PCP Visit:?Date:?06/27/2023 ?Course:?improved.?Treatments:?fungi cure , Lamisil , Pulse Dose PO Antifungal Treatment , relates adherence to recom tx , (i.e. rash, hives, taste/GI disturbance, yellow skin/eye discoloration, discolored stools, or any other unusual bodily complaints) DOS- 05/2023.?Toe pain:?Nature:?tenderness.?Location:?Right foot , 4th toe.?Duration:?several months.?Course:?recurrent,.?Aggravated by:?any pressure, shoes.?Treatments:?change in shoes , bracing/splinting/padding.? [...] Hospitalization History. * Family History:?Mother: bahman iraheta.?Father: alive.?Maternal Grand Father: diagnosed with Unspecified essential hypertension.? * Social History:?Tobacco Use:?Tobacco Use/Smoking?Are you a:?nonsmoker ?Tobacco use other than smoking?Are you an [...] yes, outdoor activities. ?Marital status: . 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 * Medications:?TakingBenadryl , Notes: prnMelatonin , Notes: 3-5MGZyrTEC , Notes: 5MGTerbinafine HCl 250 MG Tablet 1 tablet Orally Once a day for 7 days days then stop for 3 weeks repeat cycleMedication List reviewed and reconciled with the patientTaking Benadryl , Notes: prnTaking Melatonin , Notes: 3-5MGTaking ZyrTEC , Notes: 5MGTaking Terbinafine HCl 250 MG Tablet 1 tablet Orally Once a day for 7 days days then stop for 3 weeks repeat cycleMedication List reviewed and reconciled with the patient * Allergies:?Penicillin: hives Sulfa Antibiotics: hivesAdvil: hivesMotrin: hivesAmoxicillin: hivesyes[Allergies Verified] Objective: * Vitals:?Ht: 5ft 10in, Wt: 15 5, BMI:22.24, Shoe size: 9. * Examination: ???General Examination: ?GENERAL APPEARANCE:?Reveals a pleasant, alert, well nourished, well- developed, well hydrated individual, who demonstrates proper attention to hygiene/body habitus, and is in no acute distress, Pt serves as own historian for office visit today.?Vascular: ?DP PULSES:?3/4, B/L.?PT PULSES:?3/4, B/L.?Dermatologic: ?SKIN FINDINGS:??Skin exam reveals Keratotic lesion(s) located at , PIPJ , T8?Skin.?Orthopedic: ?DIGITAL DEFORMITIES:?Digital contracture, PIPJ, 2-5 B/L, incompl-reducible with WB, or to push-up test, no over, nor underlapping , Reveals pain/swelling/redness/enlargement of PIPJ plantar lateral , T8.?Nails: ?NAILS are:?Elongated, overgrown, dystrophic, lytic, greater than 3mm thick, discolored and friable with crumbly malodorous subungual debris, with pain on palpation , 1-5 Right foot , 1,3-5 Left foot , proximal clearing of nail 65 percent.? Assessment: * Assessment: 1.?Pain in right toe(s) - M7 9.674?2.?Other hammer toe(s) (acquired), right foot - M20.41?3.?Tinea unguium - B35.1 (Primary)?4.?Arthritis of joint of lesser toe, right - [...] have encouraged the patient to call the office.?Digital Treatment:?Recomm, rest, ice, proper shoegear, padding, orthotics, anti-inflammatories or tylenol as tolerated, topical analgesics, cortisone injections.?F/U Fungal nails:?Reviewed with the patient the time needed before we start seeing results with the oral Lamisil. Discussed the results that we hope to see and that cindy a topical medication to the nails may also help. We discussed the duration of time that the Lamisil will work on the nails for. We should wait 1 year before we take the Lamisil again., Nail debridement performed extensively to reduce/remove overall nail length and girth, subungual debris, and necrotic tissue, by manual and electrical means with use of a nail nipper and/or dremel, to more viable healthy nail plate or bed tissue. Silver nitrate used for any petechial bleeding as necessary.? * Follow Up:?prn * Images: * Sign off status: Completed true * Provider:?Mara Wolff DPM Date:?2023 Generated for Avinash ballesteros/Ebenezer/Gabriella on:?09/30/2024 02:04 PM EDT History and Physical Notes * HPI (History of Present Illness) Category Sub-Category Detail Notes Category Not es Toe pain Nature: tenderness Location: Right foot , 4th toe Duration: several months Course: recurrent, Aggravated by: any pressure, shoes Treatments: change in shoes , br acing/splinting/padding Painful Nails Course: improved Treatments: fungi cure , Lamisil , Pulse Dose PO Antifungal Treatment , relates adherence to recom tx , (i.e. rash, hives, taste/GI disturbance, yellow skin/eye discoloration, discolored stools, or any other unusual bodily complaints) DOS- 05/2023 Pt States Last PCP Visit: Date:: 06/27/2023 Examination Category Sub-Category Detail Notes Category Not es Dermatologic SKIN FINDINGS: Skin exam reveal s Keratotic lesion(s) located at , PIPJ , T8 Skin Orthopedic FOOTWEAR EVALUATION: DIGITAL DEFORMITIES: Digital contracture , PIPJ, 2-5 B/L, incompl-reducible with WB, or to push-up test, no over, nor underlapping , Reveals pain/swelling/redness/enlargement of PIPJ plantar lateral , T8 [...] Left foot , proximal clearing of nail 65 percent
--- OUTSIDE RECORDS SUMMARY | 2024-09-30 14:04 | XMS_ITS | Data Portability ---
Author Organization [place] - [facility], [employer] Address [address] [facility] [address] Assessment No assessment recorded. Plan of Treatment Reminders Order Date Submit Date Provider Last Modified By Organization Details Last Modified Time Details Appointments None recorded. Lab SARS CoV 2 RNA (COVID-19), QL, block handler-PCR, respiratory specimen 2022 023 srynders [facility] [place], [address] [facility] [address], [place], [address], 19:03:12 Referral None recorded. Procedures None recorded. Surgeries None recorded. Imaging None recorded. Medication Orders azithromyci n 250 mg tablet 2022 023 JENNIFER [id number], [address] [place], [id number], 3 15:07:44 dexamethaso ne 4 mg tablet 2022 023 [id number], [address] [place], [id number], 3 15:16:09 Paxlovid 300 mg (150 mg x 2)-100 mg tablets in a dose pack 2022 023 clindquis t9 [id number], [address] [place], [id number], 3 14:28:50 dexamethaso ne sodium phosphate 10 mg/mL injection solution 2022 023 [email or web address] t9 [facility] #[id number], [address] [place], [id number], 14:29:00 Patient TargetsNo targets recorded. Patient InstructionsNo instructions recorded. Reason for Referral None Reported. Results Created Date Observation Date Name Description Value Unit Range Abnormal Flag Note LastModifiedBy Organization Detail LastModifiedTime 01/01/20 23 12/31/2022 SARS CoV 2 RNA (COVI D-19) , QL, block handler-P CR, respi rator y speci men Covid 19 results positi ve Not Available [facility] [address] [place], [id number], 12/31/2022 18:25:25 Result Notes None recorded. Problems Name Problem SNOMED Code Status Onset Date Resolution Date Notes Provider Name and Address Organization Details Recorded Time Sinusitis 55310121 Active 023 ERICK Zamora - [facility]. 18:29:04 Problem Notes None recorded. Medical Equipment None Reported. Allergies Allergen ID Allergen Name Allergen Category Reaction Reaction Severity Criticality Documentation Date Start Date Code Code System Note Provider Name and Address Organization Details Recorded Time 26487 Product containin g penicilli n (product) medicatio n hives Not available high 12/31/2022 70812 8001 SNOMED ERICK Zamora - [facility]. 18:27:28 49292 Substance with sulfonami de structure and antibacte rial mechanism of action (substanc e) medicatio n hives Not available high 12/31/2022 16139 8003 SNOMED ERICK Zamora - [facility] 18:27:40 25553 Motrin medicatio n swelling Not available high 12/31/2022 54961 8 RxNorm ERICK Zamora - [facility] 18:27:56 25323 amoxicill in medicatio n Not available Not available Not available 01/05/2023 723 RxNorm ERICK Figueroa - [facility]. 14:37:03 Medications Name Sig Start Date Stop Date Status Note LastModified by Organization Details LastModified Time sildenafil 50 mg tablet TAKE 1 TABLET BY MOUTH EVERY DAY DIRECTED FOR 4 DAYS 12/31 completed Not Available Not Available Not Available azithromyci n 250 mg tablet TAKE 2 TABLETS (500 MG) BY ORAL ROUTE ONCE DAILY FOR 1 DAY THEN 1 TABLET (250 MG) BY ORAL ROUTE ONCE DAILY FOR 4 DAYS active Not Available Not Available No t Available dexamethaso ne 4 mg tablet TAKE 1 TABLET BY MOUTH DAILY FOR 3 DAYS active Not Available Not Available No t Available docusate sodium 100 mg capsule TAKE 1 CAPSULE BY MOUTH 2 TIMES A DAY NEEDED FOR CONSTIPAT ION 12/31 completed Not Available Not Available Not Available dexamethaso ne sodium phosphate 10 mg/mL injection solution Take 10 mg by injection route. 01/05 completed Not Available Not Available Not Available diazepam 5 mg tablet TAKE 1 TABLET BY MOUTH 3 TIMES A DAY 12/31 completed Not Available Not Available Not Available oxycodone 5 mg tablet TAKE 1 TABLET BY MOUTH EVERY 6 HOURS NEEDED FOR PAIN 12/31 completed Not Available Not Available Not Available Paxlovid 300 mg (150 mg x 2)-100 mg tablets in a dose pack follow instructi ons on the box 01/05 completed Not Available Not Available Not Available Vitals Date Recorded Respiratory rate Body height Body mass index (BMI) Body weight Heart rate Oxygen saturation Oxygen saturation in Arterial blood by Pulse oximetry Body temperature Systolic blood pressure Diastolic blood pressure Provider Name and Address Organization Details Last Updated DateTime 3 21 /min 177.8 cm 23.7 kg/m2 39976 g 78 /min 97 % 97 % 98.3 [degF] 117 mm[Hg] 77 mm[Hg] Raheem SUAREZ - [facility] 18:33:40 Date Recorded Body height Respiratory rate Body mass index (BMI) Body weight Heart rate Oxygen saturation Oxygen saturation in Arterial blood by Pulse oximetry Body temperature Body height Body mass index (BMI) Body weight Heart rate Systolic blood pressure Diastolic blood pressure Systolic blood pressure Diastolic blood pressure Provider Name and Address Organization Details Last Updated DateTime 3 177.8 cm 20 /min 22.1 kg/m2 39407 g 77 /min 97 % 97 % 97.6 [degF] 177.8 cm 22.1 kg/m2 69019 g 77 /min 117 mm[Hg] 78 mm[Hg] 117 mm[Hg] 78 mm[Hg] José Manuel Martinez [place] - [facility] 3 14:53:12 Social History None recorded. Functional Status None recorded. Mental Status None recorded. Family History Nothing Reported. Medical History No medical history recorded. Past Encounters Encounter ID Performer Location Encounter Start Date Encounter Closed Date Diagnosis/Indication Diagnosis SNOMED-CT Code Diagnosis ICD10 Code Diagnosis Note [id number] SONYA PEPE [facility] [address] [facility] [address] [place] [id number] 12/31/2022 18:08:43 12/31/2022 19:01:28 COVID-19 749848876 U07.1 Molecular COVID test is positive. Provider checked the patients medication list and compared it to Paxlovid to make sure there were no contraindi cations to taking this antiviral medication . There were not. D/W pt about what the antiviral Paxlovid medication is, how it has been approved for emergency use for COVID and is not FDA approved for other uses. Went over the objective of the medication (Possibly decrease the severity or longevity of the COVID virus s/s, decrease the viral load and possibly decrease the the chance of being hospitaliz ed or intubated) . Went over how to take the Paxlovid and possible side effects. Pt. has been symptomati c for 2 days. Pt. understood and agreed with this informatio n. Advised CDC guidelines , social distancing and PPE Advised to increase water intake. Seek further medical care if s/s increase or other concerning signs or symptoms occur. Pt. understand s and agrees with the treatment plan. Had pt take Dexamethas one orally, gargle and swallow due to the erythema and pain in his throat. No secondary bacterial infection was found at todays PE. [id number] BABAR GUILLEN NP [facility] [address] [place] [id number] 01/05/2023 14:21:45 01/05/2023 15:35:09 Acute bronchitis [id number] J20.9 Acute bronchitis , concerning for bacterial due to duration of illness and change in symptoms with history of bronchitis . Encouraged hot steam, mucinex and OTC tylenol as needed for discomfort . Will treat with azithromyc in., steroid, albuterol PRN with shortness of breath. Start on Afrin 12 hrs and 30 minutes prior to taking off on in plane, may use hot hands packs for ear congestion on descent. Follow up in clinic with no improvemen t or worsening of symptoms within three days of antibiotic initiation . Health Concerns Section Related Observation LastModified by Organization Detai ls LastModified Time None Recorded Concern Status LastModified by Organization Details LastModified Time None Recorded Advance Directives Directive None Recorded Payers Encounter Date Sequence Insurance Name Policy Number Policy [employer] Covered Member ID Mason Member ID Guarantor Name 12/31/2022 1 [facility] [id number] León Yefri [id number] León Yefri 12/31/2022 1 *SELF PAY* Se th Yefri 01/05/2023 1 [facility] [id number] [facility] [id number] León Yefri Notes Date Note Type Note Provider Name and Address Organization Details Recorded Time 12/31/2022 text/html Sinusitis UCReported bypatient.Location: ethmoid; maxillary Onset/Timing:abrupt onset; chronic; occurs during particular seasons of the year summer; initially started 2days ago Quality:minimal discomfort;throbbin g;worsening;congest ed;colored phlegm Duration:frequent Severity:moderate Associated Symptoms:no hemoptysis; no difficulty breathing; no headache; no facial pain; no thick phlegm in throat; not constantly clearing the throat; no nasal passage blockage; no pain behind the eyes; no dental pain;nasal discharge from both nostrils;fever/chil ls;sinus pain forehead;sore throat;coughNotes:[age] y/o male visiting [facility], for 2 days has had a bad sore throat and above s/s that are more mild. SONYA PEPE [id number], [place], [address], [place] - [facility]. 12/31/2022 19:06:50 01/05/2023 text/html CoughReported bypatient.Quality:p roductive; barking Severity:pain with cough; moderate Duration:intermitte nt Associated Symptoms:no fever; no chills; no nausea; no vomiting; no edema; no agitation;chest pain;heartburn;whee zing(occasional);po st nasal drip;sputum production;throat clearing;nasal dischargeNotes:León to clinic for cough post COVID. States that he finished Paxlovid yesterday, started to get a worsening cough the last 3 days, feeling burning and tightness in chest. States that whenever he gets viral illness, it tends to go to his chest and usually needs to get treated. He is getting ready to leave tomorrow for [place] flight and he is concerned that cough and congestion will get worse. Tightness and burning in his chest is usually his first sign. [place] resolves [place] [id number] [address], [place], [address], [place] - [facility]. 01/05/2023 15:35:06
--- OUTSIDE RECORDS SUMMARY | 2024-09-30 14:04 | XMS_ITS | Data Portability ---
Author Organization [facility], Main Office Address [address] [facility] [address] [place] [id number] Care Team Providers Care Finance Teacher Name Role Phone KATELIN NÚÑEZ Retail Wireless Associate ERIN ONTIVEROS Primary Care Provider EDGAR DONALDSON Oil Deliverer HAKAN LAMBERT Program Developer Assessment Encounter Date Assessment Date Assessment LastModified by Organization Details LastModified Time 09/17/2023 09/17/2023 Discussed with patient the signs/symptoms warranted for a return to office visit and/or an ER visit. Patient understood and agreed with the plan. Not available 09/17/2023 09:02:15 09/27/2023 09/27/2023 This service was provided using telemedicine. Patient consented to video & audio visit Patient was located in the [facility]. Provider was located in the office. No other persons participated in the telemedicine visit except for the patient unless otherwise indicated here. {{}} Total time of visit was 15 minutes. [email or web address] Not available 09/27/2023 16:01:33 07/15/2024 07/15/2024 This service was provided using telemedicine. Patient consented to video & audio visit Patient was located in the [facility]. Provider was located in the office. No other persons participated in the telemedicine visit except for the patient unless otherwise indicated here. {{}} Total time of visit was 13 minutes. [email or web address] Not available 07/15/2024 15:46:18 Plan of Treatment Reminders Order Date Submit Date Provider Last Modified By Organization Details Last Modified Time Details Appointments None record ed. Lab pipo Saldana, 25-hyd dereck, total, serum 2024 JENNIFER [facility], [address], [place], [address], 5 06:13:32 PSA, total, serum or plasma 2024 JENNIFER [facility] (Centralized Electronic Ordering - All Locations), Patient Can Go To The Location Of Their Choice, 5 06:13:31 lipid panel, serum 2024 025 [email or web address] [facility] (Centralized Electronic Ordering - All Locations), Patient Can Go To The Location Of Their Choice, 5 09:50:35 CMP, serum or plasma 2024 025 JENNIFER [facility] (Centralized Electronic Ordering - All Locations), Patient Can Go To The Location Of Their Choice, 5 06:13:30 CBC w/ auto diff 2024 025 JENNIFER [facility] (Centralized Electronic Ordering - All Locations), Patient Can Go To The Location Of Their Choice, 5 06:13:30 lipid panel, serum 2023 024 JENNIFER [facility], [address], [address], [place], [address], 4 16:23:27 AST/SG OT (aspar azul aminot leonardsfe shaq), serum or plasma 2023 024 JENNIFER [facility], [address], [address], [place], [address], 4 16:23:24 ALT (mellissa ne aminot ransfe rase), serum or plasma 2023 024 JENNIFER [facility], [address], [address], [place], [address], 4 16:23:23 CBC w/ auto diff 2023 024 JENNIFER [facility], [address], [address], [place], [address], 4 15:20:41 TSH, serum or plasma 2023 024 JENNIFER [facility], [address], [address], [place], [address], 4 16:43:41 BMP, serum or plasma 2023 024 JENNIFER [facility], [address], [address], [place], [address], 4 16:23:26 Referral sleep medici ne referr al 2023 024 [facility], [address] [place] [address], [address], 4 08:29:58 Procedures None record ed. Surgeries None record ed. Imaging None record ed. Medication Orders gabape ntin 100 mg capsul e 2024 025 [email or web address] [id number], [address] [place] [address], [address], 5 15:52:28 predni sone 10 mg tablet 2024 025 ankur [id number], [address] [place] [address], [address], 5 14:28:06 Medrol (Akil) 4 mg tablet s in a dose pack 2023 025 [id number], [address] [place], [address], 5 15:08:27 Zithro max Z-Akil 250 mg tablet 2023 024 [email or web address] [id number], [address] [place] [address], [address], 15:28:32 Patient TargetsNo targets recorded. Patient Instructions Encounter Date Encounter Id Patient Instructions Last Modified By Organization Details Last Modified Time 07/16/[id number] snoring: care instructions [email or web address] Not available 07/16/2023 10:55:25 Well Visit 50 to 65: Care Instructions [email or web address] Not available 07/16/2023 10:46:09 09/17/2023 [id number] Acute Sinusitis: Care Instructions Not available 09/17/2023 09:02:18 09/27/2023 [id number] allergies: care instructions [email or web address] Not available 09/27/2023 16:03:57 managing your allergies: care instructions [email or web address] Not available 09/27/2023 16:03:57 07/15/2024 [id number] Patient will follow up and keep appointment as scheduled. [email or web address] Not available 07/15/2024 15:46:49 07/16/2024 [id number] Prostate Cancer Screening pmadden Not available 07/16/2024 14:59:25 Well Visit 50 to 65: Care Instructions pmadden Not available 07/16/2024 14:59:25 A healthy lifestyle: care instructions pmadden Not available 07/16/2024 14:59:26 Medications (OTC, herbal therapies, supplements) reviewed and reconciled with patient and or caregiver, including potential side effects, drug interactions, instructions, and the consequences of not taking medication. Reviewed potential barriers to medication adherence, such as side effects from medication or cost of medication. pmadden Not available 07/16/2024 14:59:23 Reason for Referral Sleep Medicine Referral for Snoring Referring Physician: Erin Ontiveros, Family Medicine, Encounter Date: 07/16/2023 Results Created Date Observation Date Name Description Value Unit Range Abnormal Flag Note LastModifiedBy Organization Detail LastModifiedTime 07/17/1907/17/2023 COMPL ETE CBC WITH DIFF WBC 4.8 K/mm3 (4.0-1 1.0) Not Available [facility] (Centralized Electronic Ordering - All Locations) Patient Can Go To The Location Of Their Choice, [id number] 07/17/2023 15:20:41 07/17/19 24 07/17/2023 COMPL ETE CBC WITH DIFF RBC 4.56 M/mm3 (4.70- 6.10) low Not Available [facility] (Centralized Electronic Ordering - All Locations) Patient Can Go To The Location Of Their Choice, 07/17/2023 15:20:41 07/17/1907/17/2023 COMPL ETE CBC WITH DIFF HGB 14.0 gm/dL (13.7- 17.1) Not Available [facility] (Centralized Electronic Ordering - All Locations) Patient Can Go To The Location Of Their Choice, 07/17/2023 15:20:41 07/17/1907/17/2023 COMPL ETE CBC WITH DIFF HCT 42.8 % (40.5- 50.0) Not Available [facility] (Centralized Electronic Ordering - All Locations) Patient Can Go To The Location Of Their Choice, 07/17/2023 15:20:41 07/17/1907/17/2023 COMPL ETE CBC WITH DIFF MCV 93.9 fL (80.0- 94.0) Not Available [facility] (Centralized Electronic Ordering - All Locations) Patient Can Go To The Location Of Their Choice, 07/17/2023 15:20:41 07/17/1907/17/2023 COMPL ETE CBC WITH DIFF MCH 30.7 pg (27.0- 34.0) Not Available [facility] ([facility]ized Electronic Ordering - All Locations) Patient Can Go To The Location Of Their Choice, 07/17/2023 15:20:41 07/17/1907/17/2023 COMPL ETE CBC WITH DIFF MCHC 32.7 g/dL (33.0- 37.0) low Not Available [facility] (Centralized Electronic Ordering - All Locations) Patient Can Go To The Location Of Their Choice, 07/17/2023 15:20:41 07/17/1907/17/2023 COMPL ETE CBC WITH DIFF plt 260 K/mm3 (150-4 60) Not Available [facility] ([facility] Ordering - All Locations) Patient Can Go To The Location Of Their Choice, 07/17/2023 15:20:41 07/17/1907/17/2023 COMPL ETE CBC WITH DIFF RDW-SD 41.6 fL (<47.0 ) Not Available [facility] (Centralized [facility] Ordering - All Locations) Patient Can Go To The Location Of Their Choice, 07/17/2023 15:20:41 07/17/1907/17/2023 COMPL ETE CBC WITH DIFF MPV 9.9 fL (9.4-1 2.4) Not Available [facility] (Centralized Electronic Ordering - All Locations) Patient Can Go To The Location Of Their Choice, 07/17/2023 15:20:41 07/17/1907/17/2023 COMPL ETE CBC WITH DIFF automated NRBC 0.0 #/100 _WBC' s Not Available [facility] (Centralized Electronic Ordering - All Locations) Patient Can Go To The Location Of Their Choice, 07/17/2023 15:20:41 07/17/1907/17/2023 COMPL ETE CBC WITH DIFF abs. NRBC 0.0 K/mm3 Not Available [facility] ([facility]ized Electronic Ordering - All Locations) Patient Can Go To The Location Of Their Choice, 07/17/2023 15:20:41 07/17/1907/17/2023 COMPL ETE CBC WITH DIFF neut # 2.7 K/mm3 (1.3-7 .0) Not Available [facility] ([facility] Ordering - All Locations) Patient Can Go To The Location Of Their Choice, 07/17/2023 15:20:41 07/17/1907/17/2023 COMPL ETE CBC WITH DIFF lymph # 1.4 K/mm3 (0.8-3 .1) Not Available [facility] ([facility] Ordering - All Locations) Patient Can Go To The Location Of Their Choice, 07/17/2023 15:20:41 07/17/1907/17/2023 COMPL ETE CBC WITH DIFF mono# 0.5 K/mm3 (0.4-1 .3) Not Available [facility] ([facility] Ordering - All Locations) Patient Can Go To The Location Of Their Choice, 07/17/2023 15:20:41 07/17/1907/17/2023 COMPL ETE CBC WITH DIFF eo # 0.1 K/mm3 (0.0-0 .4) Not Available [facility] ([facility] Order[facility] - All Locations) Patient Can Go To The Location Of Their Choice, 07/17/2023 15:20:41 07/17/1907/17/2023 COMPL ETE CBC WITH DIFF baso # 0.1 K/mm3 (0.0-0 .1) Not Available [facility] ([facility] Order[facility] - All Locations) Patient Can Go To The Location Of Their Choice, 07/17/2023 15:20:41 07/17/1907/17/2023 COMPL ETE CBC WITH DIFF abs. imm gran 0.0 K/mm3 Not Available [facility] ([facility] Order[facility] - All Locations) Patient Can Go To The Location Of Their Choice, 07/17/2023 15:20:41 07/17/1907/17/2023 COMPL ETE CBC WITH DIFF neut 56.1 % (44-76 ) Not Available [facility] ([facility] Order[facility] - All Locations) Patient Can Go To The Location Of Their Choice, 07/17/2023 15:20:41 07/17/1907/17/2023 COMPL ETE CBC WITH DIFF lymph 28.6 % (15-43 ) Not Available [facility] ([facility] Order[facility] - All Locations) Patient Can Go To The Location Of Their Choice, 07/17/2023 15:20:41 07/17/1907/17/2023 COMPL ETE CBC WITH DIFF monocyte 11.1 % (4.5-1 0.5) high Not Available [facility] ([facility] Order[facility] - All Locations) Patient Can Go To The Location Of Their Choice, 07/17/2023 15:20:41 07/17/1907/17/2023 COMPL ETE CBC WITH DIFF eo 2.3 % (0-6) Not Available [facility] ([facility] Order[facility] - All Locations) Patient Can Go To The Location Of Their Choice, 07/17/2023 15:20:41 07/17/1907/17/2023 COMPL ETE CBC WITH DIFF baso 1.5 % (0-2) Not Available [facility] ([facility] Order[facility] - All Locations) Patient Can Go To The Location Of Their Choice, 07/17/2023 15:20:41 07/17/1907/17/2023 COMPL ETE CBC WITH DIFF imm gran 0.4 % Not Available [facility] ([facility] Order[facility] - All Locations) Patient Can Go To The Location Of Their Choice, 07/17/2023 15:20:41 07/17/1907/17/2023 ALT ALT 11 U/L (0-41) Not Available [facility] ([facility] Order[facility] - All Locations) Patient Can Go To The Location Of Their Choice, 07/17/2023 16:23:23 07/17/1907/17/2023 AST AST 16 U/L (0-40) Not Available [facility] ([facility] Order[facility] - All Locations) Patient Can Go To The Location Of Their Choice, 07/17/2023 16:23:24 07/17/1907/17/2023 BASIC METAB OLIC PANEL glucose 90 mg/dL (70-99 ) Not Available [facility] ([facility] Ordering - All Locations) Patient Can Go To The Location Of Their Choice, 07/17/2023 16:23:26 07/17/1907/17/2023 BASIC METAB OLIC PANEL BUN 23 mg/dL (6-20) high Not Available [facility] ([facility] Ordering - All Locations) Patient Can Go To The Location Of Their Choice, 07/17/2023 16:23:26 07/17/1907/17/2023 BASIC METAB OLIC PANEL creatinine 1.1 mg/dL (0.7-1 .2) Not Available [facility] ([facility] Ordering - All Locations) Patient Can Go To The Location Of Their Choice, 07/17/2023 16:23:26 07/17/1907/17/2023 BASIC METAB OLIC PANEL sodium 139 mmol/ L (133-1 45) Not Available [facility] ([facility] Ordering - All Locations) Patient Can Go To The Location Of Their Choice, 07/17/2023 16:23:26 07/17/1907/17/2023 BASIC METAB OLIC PANEL potassium 4.5 mmol/ L (3.6-5 .2) Not Available [facility] ([facility] Ordering - All Locations) Patient Can Go To The Location Of Their Choice, 07/17/2023 16:23:26 07/17/19 24 07/17/2023 BASIC METAB OLIC PANEL chloride 102 mmol/ L (98-10 7) Not Available [facility] ([facility] Order[facility] - All Locations) Patient Can Go To The Location Of Their Choice, 07/17/2023 16:23:26 07/17/19 24 07/17/2023 BASIC METAB OLIC PANEL bicarbonate 25 mmol/ L (22-29 ) Not Available [facility] ([facility] Ordering - All Locations) Patient Can Go To The Location Of Their Choice, 07/17/2023 16:23:26 07/17/19 24 07/17/2023 BASIC METAB OLIC PANEL anion gap 12 (4-17) Not Available [facility] ([facility] Ordering - All Locations) Patient Can Go To The Location Of Their Choice, 07/17/2023 16:23:26 07/17/19 24 07/17/2023 BASIC METAB OLIC PANEL calcium 9.0 mg/dL (8.6-1 0.5) Not Available [facility] ([facility] Ordering - All Locations) Patient Can Go To The Location Of Their Choice, 07/17/2023 16:23:26 07/17/19 24 07/17/2023 BASIC METAB OLIC PANEL estimated GFR creatinine 85 mL/mi n/1.7 3_M2 Creat inine based estim ated glome rular filtr ation (eGFR ) in adult s is calcu lated using the Natio nal Kidne y Found ation recom gail d 2020 CKD-E PI equat ion. Estim ates GFR from serum creat inine , age and sex. Not Available [facility] ([facility] Ordering - All Locations) Patient Can Go To The Location Of Their Choice, 07/17/2023 16:23:26 07/17/19 24 07/17/2023 LIPID PANEL cholesterol, total 226 mg/dL (<200) high Not Available [facility] ([facility] - All Locations) Patient Can Go To The Location Of Their Choice, 07/17/2023 16:23:27 07/17/19 24 07/17/2023 LIPID PANEL triglyceride 56 mg/dL (<150) Not Available [facility] ([facility] Locations) Patient Can Go To The Location Of Their Choice, 07/17/2023 16:23:27 07/17/19 24 07/17/2023 LIPID PANEL HDL chol 68 mg/dL (>39) Not Available [facility] ([facility] Order[facility] - All Locations) Patient Can Go To The Location Of Their Choice, 07/17/2023 16:23:27 07/17/19 24 07/17/2023 LIPID PANEL LDL cholesterol, calculated 147 mg/dL (0-130 ) high Not Available [facility] ([facility] Order[facility] - All Locations) Patient Can Go To The Location Of Their Choice, 07/17/2023 16:23:27 07/17/19 24 07/17/2023 LIPID PANEL non HDL cholesterol (calc) 158 mg/dL (<160) Not Available [facility] ([facility] Order[facility] - All Locations) Patient Can Go To The Location Of Their Choice, 07/17/2023 16:23:27 07/17/19 24 07/17/2023 TSH WITH REFLE X TO FT4 TSH 1.67 uIU/m L (0.4-4 .2) Not Available [facility] ([facility] Order[facility] - All Locations) Patient Can Go To The Location Of Their Choice, 07/17/2023 16:43:41 08/15/19 25 08/14/2024 CBC WITH DIFFE RENTI AL/PL ATELE T WBC 5.8 x10e3 /uL 3.4-10 .8 normal Not Available [facility] ([facility]) [address] [place], [address], 08/15/2024 06:13:30 08/15/19 25 08/14/2024 CBC WITH DIFFE RENTI AL/PL ATELE T RBC 4.51 x10e6 /uL 4.14-5 .80 normal Not Available [facility] ([facility]) [address] [place], [address], 08/15/2024 06:13:30 08/15/19 25 08/14/2024 CBC WITH DIFFE RENTI AL/PL ATELE T hemoglobin 14.4 g/dL 13.0-1 7.7 normal Not Available [facility] ([facility]) [address] [facility], [place], [address], 08/15/2024 06:13:30 08/15/1908/14/2024 CBC WITH DIFFE RENTI AL/PL ATELE T hematocrit 42.9 % 37.5-5 1.0 normal Not Available [facility] ([facility]) [address] [facility], [place], [address], 08/15/2024 06:13:30 08/15/19 25 08/14/2024 CBC WITH DIFFE RENTI AL/PL ATELE T MCV 95 fL 79-97 normal Not Available [facility] ([facility]) [address] [facility], [place], [address], 08/15/2024 06:13:30 08/15/19 25 08/14/2024 CBC WITH DIFFE RENTI AL/PL ATELE T MCH 31.9 pg 26.6-3 3.0 normal Not Available [facility] ([facility]) [address] [facility], [place], [address], 08/15/2024 06:13:30 08/15/19 25 08/14/2024 CBC WITH DIFFE RENTI AL/PL ATELE T MCHC 33.6 g/dL 31.5-3 5.7 normal Not Available [facility] ([facility]) [address] [facility], [place], [address], 08/15/2024 06:13:30 08/15/1908/14/2024 CBC WITH DIFFE RENTI AL/PL ATELE T RDW 11.8 % 11.6-1 5.4 Not Available [facility] ([facility]) [address] [facility], [place], [address], 08/15/2024 06:13:30 08/15/19 25 08/14/2024 CBC WITH DIFFE RENTI AL/PL ATELE T platelets 289 x10e3 /uL 150-45 0 normal Not Available [facility] ([facility]) [address] [facility], [place], [address], 08/15/2024 06:13:30 08/15/19 25 08/14/2024 CBC WITH DIFFE RENTI AL/PL ATELE T neutrophils 57 % not estab. normal Not Available [facility] ([facility]) [address] [facility], [place], [address], 08/15/2024 06:13:30 08/15/19 25 08/14/2024 CBC WITH DIFFE RENTI AL/PL ATELE T lymphs 30 % not estab. normal Not Available [facility] ([facility]) [address] [facility], [place], [address], 08/15/2024 06:13:30 08/15/19 25 08/14/2024 CBC WITH DIFFE RENTI AL/PL ATELE T monocytes 10 % not estab. normal Not Available [facility] ([facility]) [address] [facility], [place], [address], 08/15/2024 06:13:30 08/15/19 25 08/14/2024 CBC WITH DIFFE RENTI AL/PL ATELE T eos 2 % not estab. normal Not Available [facility] ([facility]) [address] [facility], [place], [address], 08/15/2024 06:13:30 08/15/19 25 08/14/2024 CBC WITH DIFFE RENTI AL/PL ATELE T basos 1 % not estab. normal Not Available [facility] ([facility]) [address] [facility], [place], [address], 08/15/2024 06:13:30 08/15/19 25 08/14/2024 CBC WITH DIFFE RENTI AL/PL ATELE T immature cells [employer]SE[employer]ERSON Not Available [facility] ([facility]) [address] [facility], [place], [address], 08/15/2024 06:13:30 08/15/19 25 08/14/2024 CBC WITH DIFFE RENTI AL/PL ATELE T neutrophils (absolute) 3.2 x10e3 /uL 1.4-7. 0 normal Not Available [facility] ([facility]) [address] [place], [address], 08/15/2024 06:13:30 08/15/19 25 08/14/2024 CBC WITH DIFFE RENTI AL/PL ATELE T lymphs (absolute) 1.7 x10e3 /uL 0.7-3. 1 normal Not Available [facility] ([facility]) [address] [place], [address], 08/15/2024 06:13:30 08/15/19 25 08/14/2024 CBC WITH DIFFE RENTI AL/PL ATELE T monocytes(ab solute) 0.6 x10e3 /uL 0.1-0. 9 normal Not Available [facility] ([facility]) [address] [place], [address], 08/15/2024 06:13:30 08/15/19 25 08/14/2024 CBC WITH DIFFE RENTI AL/PL ATELE T eos (absolute) 0.1 x10e3 /uL 0.0-0. 4 normal Not Available [facility] ([facility]) [address] [place], [address], 08/15/2024 06:13:30 08/15/19 25 08/14/2024 CBC WITH DIFFE RENTI AL/PL ATELE T baso (absolute) 0.1 x10e3 /uL 0.0-0. 2 normal Not Available [facility] ([facility]) [address] [place], [address], 08/15/2024 06:13:30 08/15/19 25 08/14/2024 CBC WITH DIFFE RENTI AL/PL ATELE T immature granulocytes 0 % not estab. Not Available [facility] ([facility]) [address] [place], [address], 08/15/2024 06:13:30 08/15/19 25 08/14/2024 CBC WITH DIFFE RENTI AL/PL ATELE T immature grans (abs) 0.0 x10e3 /uL 0.0-0. 1 Not Available [facility] ([facility]) [address] [facility], [place], [address], 08/15/2024 06:13:30 08/15/19 25 08/14/2024 CBC WITH DIFFE RENTI AL/PL ATELE T NRBC [employer] Not Available [facility] ([facility]) [address] [facility], [place], [address], 08/15/2024 06:13:30 08/15/19 25 08/14/2024 CBC WITH DIFFE RENTI AL/PL ATELE T hematology comments: [employer]ERSON Not Available [facility] ([facility]) [address] [facility], [place], [address], 08/15/2024 06:13:30 08/15/19 25 08/14/2024 COMP. METAB OLIC PANEL (14) glucose 91 mg/dL 70-99 normal Not Available [facility] ([facility]) [address] [facility], [place], [address], 08/15/2024 06:13:30 08/15/19 25 08/14/2024 COMP. METAB OLIC PANEL (14) BUN 20 mg/dL 6-24 normal Not Available [facility] ([facility]) [address] [facility], [place], [address], 08/15/2024 06:13:30 08/15/19 25 08/14/2024 COMP. METAB OLIC PANEL (14) creatinine 0.89 mg/dL 0.76-1 .27 normal Not Available [facility] ([facility]) [address] [facility], [place], [address], 08/15/2024 06:13:30 08/15/19 25 08/14/2024 COMP. METAB OLIC PANEL (14) eGFR 102 mL/mi n/1.7 3 >59 normal Not Available [facility] ([facility]) [address] [place], [address], 08/15/2024 06:13:30 08/15/19 25 08/14/2024 COMP. METAB OLIC PANEL (14) BUN/creatini ne ratio 22 9-20 above high normal Not Available [facility] ([facility]) [address] [place], [address], 08/15/2024 06:13:30 08/15/19 25 08/14/2024 COMP. METAB OLIC PANEL (14) sodium 140 mmol/ L 134-14 4 normal Not Available [facility] ([facility]) [address] [place], [address], 08/15/2024 06:13:30 08/15/19 25 08/14/2024 COMP. METAB OLIC PANEL (14) potassium 4.1 mmol/ L 3.5-5. 2 normal Not Available [facility] ([facility]) [address] [place], [address], 08/15/2024 06:13:30 08/15/19 25 08/14/2024 COMP. METAB OLIC PANEL (14) chloride 104 mmol/ L 96-106 normal Not Available [facility] ([facility]) [address] [place], [address], 08/15/2024 06:13:30 08/15/19 25 08/14/2024 COMP. METAB OLIC PANEL (14) carbon dioxide, total 22 mmol/ L 20-29 normal Not Available [facility] ([facility]) [address] [place], [address], 08/15/2024 06:13:30 08/15/19 25 08/14/2024 COMP. METAB OLIC PANEL (14) calcium 9.1 mg/dL 8.7-10 .2 normal Not Available [facility] ([facility]) [address] [facility], [address], 08/15/2024 06:13:30 08/15/19 25 08/14/2024 COMP. METAB OLIC PANEL (14) protein, total 6.6 g/dL 6.0-8. 5 normal Not Available [facility] ([facility]) [address] [facility], [address], 08/15/2024 06:13:30 08/15/19 25 08/14/2024 COMP. METAB OLIC PANEL (14) albumin 4.3 g/dL 3.8-4. 9 normal Not Available [facility] ([facility]) [address] [place], [address], 08/15/2024 06:13:30 08/15/19 25 08/14/2024 COMP. METAB OLIC PANEL (14) globulin, total 2.3 g/dL 1.5-4. 5 Not Available [facility] ([facility]) [address] [facility], [address], 08/15/2024 06:13:30 08/15/19 25 08/14/2024 COMP. METAB OLIC PANEL (14) bilirubin, total 0.5 mg/dL 0.0-1. 2 normal Not Available [facility] ([facility]) [address] [facility] [place], [address], 08/15/2024 06:13:30 08/15/19 25 08/14/2024 COMP. METAB OLIC PANEL (14) alkaline phosphatase 68 IU/L 44-121 normal Not Available [facility] ([facility]) [address] [facility], [address], 08/15/2024 06:13:30 08/15/19 25 08/14/2024 COMP. METAB OLIC PANEL (14) AST (SGOT) 16 IU/L 0-40 normal Not Available [facility] ([facility]) [address] [place], [address], 08/15/2024 06:13:30 08/15/19 25 08/14/2024 COMP. METAB OLIC PANEL (14) ALT (SGPT) 15 IU/L 0-44 normal Not Available [facility] ([facility]) [address] [facility], [place], [address], 08/15/2024 06:13:30 08/15/19 25 08/14/2024 LIPID PANEL cholesterol, total 215 mg/dL 100-19 9 above high normal Not Available [facility] ([facility]) [address] [facility] [place], [address], 08/15/2024 06:13:31 08/15/19 25 08/14/2024 LIPID PANEL triglyceride s 57 mg/dL 0-149 normal Not Available [facility] ([facility]) [address] [place], [address], 08/15/2024 06:13:31 08/15/19 25 08/14/2024 LIPID PANEL HDL cholesterol 65 mg/dL >39 normal Not Available [facility] ([facility]) [address] [place], [address], 08/15/2024 06:13:31 08/15/19 25 08/14/2024 LIPID PANEL VLDL cholesterol nahomy 10 mg/dL 5-40 Not Available [facility] ([facility]) [address] [place], [address], 08/15/2024 06:13:31 08/15/19 25 08/14/2024 LIPID PANEL LDL chol calc ([facility]) 140 mg/dL 0-99 above high normal Not Available [facility] ([facility]) [address] [place], [address], 08/15/2024 06:13:31 08/15/19 25 08/14/2024 LIPID PANEL LDL calc comment: LINEN ROOM HOUSEPERSON Not Available [facility] ([facility]) [address], [place], [address], 08/15/2024 06:13:31 08/15/19 25 08/14/2024 PROST ATE-S PECIF IC AG prostate specific Ag 0.4 NG/mL 0.0-4. 0 normal Nehal ECLIA metho dolog y. Accor ding to the Ameri can Urolo gical Assoc iatio n, Serum PSA shoul d decre ase and remai n at undet ectab le level s after radic al prost atect josh. The AUA defin es bioch emica l recur rence as an initi al PSA value 0.2 ng/mL or great er follo wed by a subse quent confi rmato ry PSA value 0.2 ng/mL or great er. Value s obtai herbert with diffe rent assay metho ds or kits canno t be used inter daniels eably . Resul ts canno t be inter prete d as absol courtney evide nce of the prese nce or absen ce of kaveh flores se. Not Available [facility] ([facility]) [address] [facility], [place], [address], 08/15/2024 06:13:31 08/15/19 25 08/15/2024 VITAM IN D, 25-HY DROXY vitamin D, 25-hydroxy 26.9 NG/mL 30.0-1 00.0 below low normal Vitam in D defic iency has been defin ed by the Insti tute of Medic ine and an Endoc rine Socie ty pract ice guide line as a level of serum 25-OH vitam in D less than 20 ng/mL (1,2) . The Endoc rine Socie ty went on to furth er defin e vitam in D insuf ficie ncy as a level betwe en 21 and 29 ng/mL (2). 1. IOM (Inst itute of Medic ine). 2010. Dieta ry refer ence intak es for calci um and D. Sher henriquez [place]: The Natio nal [employer] . 2. Geovanny nguyen MF, Dorina santillan [place], Yi off-F errar i RAMÍREZ, et al. Evalu ation , treat ment, and preve ntion of vitam in D defic iency : an Endoc rine Socie ty clini nahomy pract ice guide line. JCEM. 2010; 96(7) :1911 -30. Not Available [facility] ([facility]) [address] [facility], [place], [address], 08/15/2024 06:13:32 Result Notes None recorded. Problems Name Problem SNOMED Code Status Onset Date Resolution Date Notes Provider Name and Address Organization Details Recorded Time Acute maxillar y sinusiti s 16555057 Completed 200711/25/2013 IMPRESSI ON: RESOLVIN G; RECORDED 02/28/20 08 2:19PM BY BRAVO LAEJANDRO ON/ADDEN DUM Not Available [facility] 4 15:03:16 Acute pharyngi tis 578462095 Completed 201211/25/2013 RECORDED 08/01/19 13 10:16AM BY ELIZABETH ZABALA MA ANNOTATI ON/ADDEN DUM Not Available [facility] 4 15:03:16 Acute sinusiti s 38113403 Completed 201211/25/2013 RECORDED 11/08/19 13 11:06AM BY DANIEL ALEJANDROATI ON/ADDEN DUM PROSPER [place] [facility] 4 10:25:16 Allergic rhinitis 12689362 Completed 201312/13/2018 RECORDED 06/11/19 14 12:40PM BY AUSTEN JUNIOR MA, OFFICE VISIT PROSPER Ambrosio [facility] 9 11:15:37 Allergic rhinitis caused by pollen 85803219 Completed 201211/25/2013 RECORDED 08/01/19 13 10:16AM BY ELIZABETH ZABALA MA, DANIELATI ON/ADDEN DUM Not Available [facility] 4 15:03:16 Anxiety state 587523308 Completed 201211/25/2013 RECORDED 02/02/20 13 12:21PM BY DARRICK MORELAND MD, ANNOTATI ON/ADDEN DUM Not Available formerly [facility] 4 15:03:16 Patient status finding 622516205 Completed 201211/25/2013 RECORDED 11/08/19 13 11:06AM BY DARLINE NOONAN I, ANNOTATI ON/ADDEN DUM PROSPER Ambrosio [facility] 9 11:15:05 Acute bronchit is 90477138 Completed 201211/25/2013 RECORDED 11/08/19 13 11:06AM BY DANIEL ALEJANDROATI ON/ADDEN DUM Not Available formerly [facility] 4 15:03:16 Chronic sinusiti s 10355933 Completed 201312/13/2018 RECORDED 06/11/19 14 12:40PM BY AUSTEN JUNIOR MA, OFFICE VISIT PROSPER Ambrosio [facility] 9 11:15:19 Cough 98762178 Completed 200711/25/2013 RECORDED 02/28/20 08 2:19PM BY DONA FRIAS, DANIELATI ON/ADDEN DUM Not Available formerly [facility] 4 15:03:16 Depressi ve disorder 48287753 Completed 201211/25/2013 RECORDED 02/02/20 13 12:21PM BY DARRICK MORELAND MD, ANNOTATI ON/ADDEN DUM Not Available formerly [facility] 4 15:03:16 Malaise and fatigue 124014288 Completed 201311/25/2013 RECORDED 06/11/19 14 12:40PM BY AUSTEN JUNIOR MA, ANNOTATI ON/ADDEN DUM Not Available formerly [facility] 4 15:03:17 Influenz a vaccine needed [id number] 06 Completed 201211/25/2013 RECORDED 08/01/19 13 10:16AM BY ELIZABETH ZABALA MA, ANNOTATI ON/ADDEN DUM Not Available formerly [facility] 4 15:03:17 Adult health examinat ion Completed 201312/13/2018 RECORDED 06/11/19 14 12:40PM BY AUSTEN JUNIOR MA, OFFICE VISIT PROSPER Ambrosio [facility] 9 11:15:17 General examinat ion of patient Completed 200711/25/2013 RECORDED 02/28/20 08 2:19PM BY BRAVO ALEJANDRO ON/ADDEN DUM Not Available formerly [facility] 4 15:03:17 Hyperlip idemia 86795086 Active 2013 Aliya De Santiago lupe [facility] 9 09:37:50 Impacted cerumen 91122099 Completed 201312/13/2018 RECORDED 06/11/19 14 12:40PM BY AUSTEN JUNIOR MA, OFFICE VISIT PROSPER Ambrosio [facility] 9 11:15:14 Pasteure lla infectio n [id number] Completed 200711/25/2013 RECORDED 02/28/20 08 2:19PM BY BRAVO ALEJANDRO ON/ADDEN DUM Not Available formerly [facility] 4 15:03:17 Administ ration of tetanus vaccine Completed 201211/25/2013 RECORDED 08/01/19 13 10:16AM BY ELIZABETH ZABALA MA, ANNOTATI ON/ADDEN DUM Not Available formerly [facility] 4 15:03:17 Patient status finding [id number] Completed 201312/13/2018 RECORDED 06/11/19 14 12:40PM BY AUSTEN JUNIOR MA, OFFICE VISIT PROSPER Ambrosio [facility] 9 11:15:05 Otitis media 60114478 Completed 201211/25/2013 RECORDED 02/02/20 13 12:21PM BY DARRICK MORELAND MD, ANNOTATI ON/ADDEN DUM Not Available [facility] 4 15:03:17 Pneumoni a 457404608 Completed 201211/25/2013 RECORDED 02/02/20 13 12:21PM BY DARRICK MORELAND MD, ANNOTATI ON/ADDEN DUM Not Available [facility] 4 15:03:17 Pterygrosemarie m 64845973 Completed 201211/25/2013 RECORDED 08/01/19 13 10:16AM BY ELIZABETH ZABALA MA, ANNOTATI ON/ADDEN DUM Not Available [facility] 4 15:03:18 Non-supp urative otitis media 888696810 Completed 200711/25/2013 RECORDED 02/28/20 08 2:19PM BY DONA FRIAS, ANNOTATI ON/ADDEN DUM Not Available [facility] 4 15:03:18 Disorder of upper respirat ory system 218561034 Completed 201211/25/2013 IMPRESSI ON: SINUS SXS X PAST NEARLY TWO WEEKS, DID NOT RESPOND TO COURSE OF AZITHRO. I SUSPECT THAT THIS IS ALLERGY RELATED. COUNSELE D LENARD PATEL CE OF TIGHTER ALLX CONTROL WITH USE OF DAILY ANTIHIST AMINE, NASAL SALINE AND CS SPRAY. HAS BEEN EVAL BY ALLX IN PAST HOWEVER DID NOT GO THROUGH WITH TX. PROVIDED WITH HARD COPY OF ABX SHOULD SXS WORSEN OR PERSIST INTO NEXT WEEK. WILL F/U WITH PCP FOR FULL PE OVERDUE. ; RECORDED 08/01/19 13 10:16AM BY ELIZABETH ZABALA MA, ANNOTATI ON/ADDEN DUM Not Available [facility] 4 15:03:18 Chronic sinusiti s 27395055 Completed 201211/25/2013 RECORDED 01/31/20 13 4:08PM BY ELIZABETH ZABALA MA, ANNOTATI ON/ADDEN DUM PROSPER Ambrosio [place] - [facility] 9 11:15:19 Wheezing 98214048 Completed 201211/25/2013 RECORDED 08/01/19 13 10:16AM BY ELIZABETH ZABALA MA, ANNOTATI ON/ADDEN DUM Not Available [facility] 4 15:03:18 Acute maxillar y sinusiti s 03616912 Completed 200712/22/2013 IMPRESSI ON: RESOLVIN G; RECORDED 02/28/20 08 2:19PM BY DONA FRIAS, DANIELATI ON/ADDEN DUM Not Available formerly [facility] 4 05:40:20 Acute pharyngi tis 631825425 Completed 201212/22/2013 RECORDED 08/01/19 13 10:16AM BY ELIZABETH ZABALA MA, ANNOTATI ON/ADDEN DUM Not Available formerly [facility] 4 05:40:20 Acute sinusiti s 60220199 Completed 201212/22/2013 RECORDED 11/08/19 13 11:06AM BY DARLINE NOONAN I, ANNOTATI ON/ADDEN DUM [facility] 4 10:25:16 Allergic rhinitis caused by pollen 72762508 Completed 201212/22/2013 RECORDED 08/01/19 13 10:16AM BY ELIZABETH ZABALA MA, ANNOTATI ON/ADDEN DUM Not Available formerly [facility] 4 05:40:20 Anxiety state 756528194 Completed 201212/22/2013 RECORDED 02/02/20 13 12:21PM BY DARRICK MORELAND MD, ANNOTATI ON/ADDEN DUM Not Available formerly [facility] 4 05:40:20 Patient status finding 908873924 Completed 201212/22/2013 RECORDED 11/08/19 13 11:06AM BY DARLINE NOONAN I ANNOTATI ON/ADDEN DUM [facility] 9 11:15:05 Acute bronchit is 95998382 Completed 201212/22/2013 RECORDED 11/08/19 13 11:06AM BY DARLINE NOONAN I ANNOTATI ON/ADDEN DUM Not Available formerly [facility] 4 05:40:20 Cough 34620630 Completed 200712/22/2013 RECORDED 02/28/20 08 2:19PM BY DANIEL ALEJANDROATI ON/ADDEN DUM Not Available formerly [facility] 4 05:40:20 Depressi ve disorder 96165715 Completed 201212/22/2013 RECORDED 02/02/20 13 12:21PM BY DARRICK MORELAND MD, ANNOTATI ON/ADDEN DUM Not Available [facility] 4 05:40:20 Malaise and fatigue 817735584 Completed 201312/22/2013 RECORDED 06/11/19 14 12:40PM BY AUSTEN JUNIOR MA, ANNOTATI ON/ADDEN DUM Not Available [facility] 4 05:40:20 Influenz a vaccine needed 02305157520 06 Completed 201212/22/2013 RECORDED 08/01/19 13 10:16AM BY ELIZABETH ZABALA MA, ANNOTATI ON/ADDEN DUM Not Available [facility] 4 05:40:20 General examinat ion of patient Completed 200712/22/2013 RECORDED 02/28/20 08 2:19PM BY DONA FRIAS, BRAVO ON/ADDEN DUM Not Available formerly [facility] 4 05:40:20 Pasteure lla infectio n [id number] Completed 200712/22/2013 RECORDED 02/28/20 08 2:19PM BY DANIEL ALEJANDROATI ON/ADDEN DUM Not Available formerly [facility] 4 05:40:20 Administ ration of tetanus vaccine Completed 201212/22/2013 RECORDED 08/01/19 13 10:16AM BY ELIZABETH ZABALA MA, DANIELATI ON/ADDEN DUM Not Available [facility] 4 05:40:20 Otitis media 50376965 Completed 201212/22/2013 RECORDED 02/02/20 13 12:21PM BY DARRICK MORELAND MD, ANNOTATI ON/ADDEN DUM Not Available [facility] 4 05:40:21 Pneumoni a 533319052 Completed 201212/22/2013 RECORDED 02/02/20 13 12:21PM BY DARRICK MORELAND MD, ANNOTATI ON/ADDEN DUM Not Available [facility] 4 05:40:21 Pterygiu m 92241582 Completed 201212/22/2013 RECORDED 08/01/19 13 10:16AM BY ELIZABETH ZABALA MA, BRAVO ON/ADDEN DUM Not Available formerly [facility] 4 05:40:21 Non-supp urative otitis media 451738489 Completed 200712/22/2013 RECORDED 02/28/20 08 2:19PM BY BRAVO ALEJANDRO ON/ADDEN DUM Not Available formerly [facility] 4 05:40:21 Disorder of upper respirat ory system 264130028 Completed 201212/22/2013 IMPRESSI ON: SINUS SXS X PAST NEARLY TWO WEEKS, DID NOT RESPOND TO COURSE OF AZITHRO. I SUSPECT THAT THIS IS ALLERGY RELATED. COUNSELE Maria Elena PATEL CE OF TIGHTER ALLX CONTROL WITH USE OF DAILY ANTIHIST AMINE, NASAL SALINE AND CS SPRAY. HAS BEEN EVAL BY ALLX IN PAST HOWEVER DID NOT GO THROUGH WITH TX. PROVIDED WITH HARD COPY OF ABX SHOULD SXS WORSEN OR PERSIST INTO NEXT WEEK. WILL F/U WITH PCP FOR FULL PE OVERDUE. ; RECORDED 08/01/19 13 10:16AM BY ELIZABETH ZABALA MA, BRAVO ON/ADDEN DUM Not Available formerly [facility] 4 05:40:21 Wheezing 17453807 Completed 201212/22/2013 RECORDED 08/01/19 13 10:16AM BY ELIZABETH ZABALA MA, BRAVO ON/ADDEN DUM Not Available formerly [facility] 4 05:40:21 Inflamma tion of rotator cuff tendon 982886713 Completed 12/13/2018 PROSPER Ambrosio [facility] 9 11:15:26 Fatigue 44979906 Completed 12/13/2018 PROSPER Ambrosio [facility] 9 11:15:41 Otalgia 57056433 Completed 12/13/2018 PROSPER Ambrosio [facility] 9 11:15:11 Acute sinusiti s 86988981 Completed 12/13/2018 MarinePROSPER [place], [facility] 4 10:25:16 Exposure to SARS-CoV -2 Completed 05/03/2020 Removal Reason: Problem added by user [email or web address] from the COVID-19 watch flag Rao Woods PA-C [address], [place], [address] , [facility] 0 11:12:55 Insomnia 494648985 Active 2019 Rao Woods PA-C [address], [place], [address] , [facility] 0 13:22:31 Hemorrho ids 75597821 Completed 201907/16/2023 Erin Ontiveros MD [address], [place], [address] , [facility] 4 10:40:13 Tenderne ss of nipple 118258299 Completed 202107/16/2023 Erin Ontiveros MD [address], [place], [address] , [facility] 4 10:41:32 Pterygiu m 84719568 Active 2022 Erin Ontiveros MD [address], [place], [address] , [facility] 3 09:37:11 Prolacti noma 414203772 Active 2022 Followed by endo note: 09/13/22 Erin Ontiveros MD [address], [place], [address] , [facility] 3 08:26:28 COVID-19 932201664 Completed 202207/16/2023 PROSPER [place], [facility] 4 10:25:12 Acute sinusiti s 74277664 Completed 202307/16/2023 [facility]PER [place] [facility] 4 10:25:16 History of hemorrho id [id number] 707993 Active 2023 hx of surgery Erin Ontiveros MD [address] [address] , [facility] 4 10:40:24 Problem Notes None recorded. Procedures Surgical History Date Name Laterality Status Provider Name and Address Organization Details Recorded Time 07/13/19 24 hemorrhoidectomy completed Marine tolliver [place] [facility] 07/16/2023 10:33:19 01/13/20 21 Colonoscopy completed Aliyaarchie De Santiago [facility] 03/07/2021 11:11:42 11/23/18 71 Circumcision completed Marine tolliver [facility] 05/04/2021 11:13:45 Imaging Results None recorded. Procedure Notes None recorded. Medical Equipment None Reported. Allergies Allergen ID Allergen Name Allergen Category Reaction Reaction Severity Criticality Documentation Date Start Date Code Code System Note Provider Name and Address Organization Details Recorded Time Substance with sulfonami de structure and antibacte rial mechanism of action (substanc e) medicatio n Not available Not available Not available 07/31/20142013 15354 8003 SNOMED Mckenna andrade [facility] 5 14:31:22 01948 ibuprofen medicatio n facial swelling Not available Not available 12/13/2018 5640 RxNorm PROSPER Ambrosio [facility] 9 11:12:59 64203 Product containin g penicilli n (product) medicatio n Not available Not available Not available 01/11/2023 35917 8001 SNOMED PROSPER Winter [facility] 3 13:38:57 6964 amoxicill in trihydrat e medicatio n Not available Not available Not available 11/25/20132013 17017 8 RxNorm Erin Ontiveros MD [address], [place], [address], [facility] 4 10:41:20 Medications Name Sig Start Date Stop Date Status Note LastModified by Organization Details LastModified Time Prescript ion - Prior Authoriza tion Request 12/13 completed Not Available Not Available Not Available prednison e 10 mg tablet TAKE 5 TABLETS BY MOUTH DAILY FOR 2 DAYS & REDUCE BY 1 TABLET EVERY 2 DAYS UNTIL FINISHED active Not Available Not Available No t Available doxycycli ne hyclate 100 mg capsule BID 10/15 completed RECORDED 10/16/19 10 9:07AM BY CIARA OBREGON, OFFICE VISIT; Not Available Not Available Not Available erythromy mirella 500 mg tablet TID 02/26 completed RECORDED 03/07/20 07 9:34AM BY DARRICK MORELAND MD, MEDICATI ON AUTO-MARCIA CTIVATIO N; Not Available Not Available Not Available sildenafi l 50 mg tablet TAKE 1 TABLET BY MOUTH EVERY DAY DIRECTED FOR 4 DAYS active Not Available Not Available No t Available azithromy mirella 250 mg tablet TAKE 2 TABLETS BY MOUTH TODAY, THEN TAKE 1 TABLET DAILY FOR 4 DAYS DIRECTED 09/26 completed Not Available Not Available Not Available clarithro mycin 500 mg tablet BID 08/01 completed RECORDED 08/12/19 08 11:19AM BY ANA LAURA Lee NP, MEDICATI ON AUTO-MARCIA CTIVATIO N; Not Available Not Available Not Available prednison e 20 mg tablet DAILY 08/19 completed RECORDED 02/28/20 08 2:18PM BY ANA LAURA Lee NP, MEDICATI ON AUTO-MARCIA CTIVATIO N; Not Available Not Available Not Available moxifloxa mirella 400 mg tablet QD 09/13 completed RECORDED 09/19/19 07 8:23AM BY GREGG MORE, MEDICATI ON AUTO-MARCIA CTIVATIO N; Not Available Not Available Not Available Zyrtec 10 mg tablet Take 1 tablet every day by oral route at bedtime. 07/15 completed Not Available Not Available Not Available peg-elect rolyte solution 420 gram oral solution TAKE 8 OZ BY MOUTH DIRECTED 05/04 completed Not Available Not Available Not Available hydrocort isone 2.5 % topical cream with perineal applicato r APPLY SPARINGL Y TO AFFECTED AREA 2 TO 4 TIMES A DAY 05/04 completed Not Available Not Available Not Available terbinafi ne HCl 250 mg tablet TAKE 1 TABLET BY MOUTH EVERY DAY FOR 7 DAYS THEN STOP FOR 3 WEEKS, REPEAT CYCLE 07/15 completed Not Available Not Available Not Available Fluticaso ne Propionat e (Inhal) 50 mcg/BLIST inhl powd DAILY 2012 active RECORDED 06/11/19 14 12:40PM BY AUSTEN JUNIOR MA, OFFICE VISIT; Not Available Not Available Not Available Beconase AQ 42 mcg (0.042 %) nasal spray DAILY 10/15 completed RECORDED 10/16/19 10 9:08AM BY CIARA OBREGON, OFFICE VISIT; Not Available Not Available Not Available dexametha sone 4 mg tablet TAKE 1 TABLET BY MOUTH DAILY FOR 3 DAYS 01/11 completed Not Available Not Available Not Available Qvar 40 mcg/actua tion Metered Aerosol oral inhaler TWO TIMES DAILY 08/30 completed RECORDED 11/08/19 13 8:48AM BY SONYA AGUAYO, MEDICATI ON AUTO-MARCIA CTIVATIO N; Not Available Not Available Not Available docusate sodium 100 mg capsule TAKE 1 CAPSULE BY MOUTH 2 TIMES A DAY NEEDED FOR CONSTIPA TION 01/11 completed Not Available Not Available Not Available gabapenti n 100 mg capsule TAKE 2 CAPSULES BY MOUTH EVERY DAY AT BEDTIME NEEDED active Not Available Not Available No t Available clobetaso l 0.05 % topical ointment APPLY THIN COAT TO AFFECTED AREA TWICE A DAY 07/15 completed Not Available Not Available Not Available Nasonex 50 mcg/actua tion [place] INSTILL 2 SPRAYS INTO EACH NOSTRIL ONCE A DAY active Not Available Not Available No t Available Tylenol-C odeine #3 300 mg-30 mg tablet EVERY 6 HOURS NEEDED 04/19 completed RECORDED 07/08/19 10 1:59PM BY ANNE DE LA GARZAC, MEDICATI ON AUTO-MARCIA CTIVATIO N; Not Available Not Available Not Available cefuroxim e axetil 500 mg tablet TWO TIMES DAILY 08/10 completed RECORDED 11/08/19 13 8:48AM BY SONYA AGUAYO, MEDICATI ON AUTO-MARCIA CTIVATIO N; Not Available Not Available Not Available methylpre dnisolone 4 mg tablets in a dose pack 07/15 completed Not Available Not Available Not Available Cortispor in-TC 3.3 mg-3 mg-10 mg-0.5 mg/mL ear drops,cecy pension Instill 5 drops 4 times a day by otic route for 7 days. 2014 active Not Available Not Available Not Avai lable doxycycli ne hyclate 100 mg tablet Take 1 tablet twice a day by oral route for 7 days. 12/13 completed Not Available Not Available Not Available diazepam 5 mg tablet TAKE 1 TABLET BY MOUTH 3 TIMES A DAY 01/11 completed Not Available Not Available Not Available oxycodone 5 mg tablet TAKE 1 TABLET BY MOUTH EVERY 6 HOURS NEEDED FOR PAIN 01/11 completed Not Available Not Available Not Available Benadryl 25 mg capsule Take 1 capsule as needed by oral route at bedtime. 01/09 completed Not Available Not Available Not Available albuterol (refill) 90 mcg/actua tion aerosol inhaler Q 4HR/PRN 08/21 completed RECORDED 02/28/20 08 2:18PM BY ANA LAURA Lee NP, MEDICATI ON AUTO-MARCIA CTIVATIO N; Not Available Not Available Not Available codeine-g uaifenesi n oral syrup Q 4 HOURS PRN COUGH. CAUTION DROWSINE SS 08/08 completed RECORDED 11/08/19 13 8:48AM BY SONYA AGUAYO, MEDICATI ON AUTO-MARCIA CTIVATIO N; Not Available Not Available Not Available flunisoli de 29 mcg (0.025 %) nasal spray 2 TIMES PER DAY IN EACH NOSTRIL 11/11 completed RECORDED 11/12/19 13 3:14PM BY AKILA DEGUTIS, ANNOTATI ON/ADDEN DUM; Not Available Not Available Not Available Ciprodex 0.3 %-0.1 % ear drops,cecy pension INSTILL 4 DROPS INTO AFFECTED EAR(S) BY OTIC ROUTE 2 TIMES PER DAY FOR 7 DAYS active Not Available Not Available No t Available melatonin 2 tablets at HS 05/04 completed Not Available Not Available Not Available erythromy mirella TID FOR 5 DAYS 10/15 completed RECORDED 10/16/19 10 9:08AM BY CIARA OBREGON, OFFICE VISIT; Not Available Not Available Not Available Flonase Q NARES QAM 10/15 completed RECORDED 10/16/19 10 9:08AM BY CIARA OBREGON, OFFICE VISIT; Not Available Not Available Not Available Benadryl Allergy active As needed for allergie s Not Available Not Available Not Available melatonin 5 mg tablet Take 1 tablet as needed by oral route at bedtime. 07/16 completed Not Available Not Available Not Available loratadin e 10 mg capsule DAILY 08/30 completed RECORDED 11/08/19 13 8:48AM BY SONYA AGUAYO, MEDICATI ON AUTO-MARCIA CTIVATIO N; Not Available Not Available Not Available Judy Allergy 180 mg tablet Take 1 tablet every day by oral route. active Not Available Not Available No t Available melatonin 1.5 mg-genist ein 15 mg-herbal no.233 22 mcg chewable tablet Take 1 tablet every day by oral route. 05/03 completed Not Available Not Available Not Available Flonase Allergy Relief 50 mcg/actua tion nasal spray,cecy pension [place] 1 spray every day by intranas al route. active Not Available Not Available No t Available Flonase Sensimist 27.5 mcg/actua tion nasal spray,cecy pension Take 1 spray every day by nasal route at bedtime for 30 days. 01/09 completed Not Available Not Available Not Available melatonin 5 mg chewable tablet Take 1 tablet every day by oral route. active 1 Gummie Not Available Not Available No t Available Tylenol 325 mg capsule Take 1 capsule every day by oral route as needed. active Not Available Not Available No t Available Flucelvax Quad (PF) 60 mcg (15 mcg x 4)/0.5 mL IM syringe 05/03 completed Not Available Not Available Not Available Flucelvax Quad (PF) 60 mcg (15 mcg x 4)/0.5 mL IM syringe PHARMACY ADMINIST [place] 05/03 completed Not Available Not Available Not Available BinaxNOW COVID-19 Ag Self Test kit TEST DIRECTED TODAY 01/09 completed Not Available Not Available Not Available Kerasal Fungal Nail Renewal topical solution as needed active Not Available Not Available No t Available Vitals Date Recorded Body height Body mass index (BMI) Body weight Heart rate Oxygen saturation Oxygen saturation in Arterial blood by Pulse oximetry Body temperature Systolic blood pressure Diastolic blood pressure Provider Name and Address Organization Details Last Updated DateTime 4 176.53 cm 23 kg/m2 26578.5 9 g 68 /min 98 % 98 % 98 [degF] 112 mm[Hg] 68 mm[Hg] Marine dangelo MA [facility] 4 10:31:39 Date Recorded Body height Body mass index (BMI) Body weight Heart rate Oxygen saturation Oxygen saturation in Arterial blood by Pulse oximetry Body temperature Systolic blood pressure Diastolic blood pressure Provider Name and Address Organization Details Last Updated DateTime 4 176.53 cm 22.3 kg/m2 88579.6 3 g 81 /min 98 % 98 % 98 [degF] 119 mm[Hg] 77 mm[Hg] Carol Gallegos MA [facility] 4 08:50:17 Date Recorded Body height Provider Name an d Address Organization Details Last Updated DateTime 09/27/2023 176.53 cm Carol Gallegos MA [facility] 09/27/2023 15:27:37 Date Recorded Body height Provider Name an d Address Organization Details Last Updated DateTime 07/15/2024 176.53 cm Marine Wooten [facility] 07/15/2024 15:06:51 Date Recorded Body height Body mass index (BMI) Body weight Heart rate Oxygen saturation Oxygen saturation in Arterial blood by Pulse oximetry Body temperature Systolic blood pressure Diastolic blood pressure Provider Name and Address Organization Details Last Updated DateTime 5 176.53 cm 22.9 kg/m2 50475 g 81 /min 99 % 99 % 97.7 [degF] 134 mm[Hg] 80 mm[Hg] Yanely Lopez MA [facility] 5 14:59:28 Social History Question Answer Notes LastModified by Organizat ion Details LastModified Time Tobacco Smoking Status Never Smoker cigar 1-2 yearly PROSPER Ambrosio, [facility] 12/13/2018 11:17:24 Do You Have An Advance Directive? Yes Information not available 05/04/2021 Is Blood Transfusion Acceptable In An Emergency? Yes Information not available 12/13/2018 What Is Your Level Of Caffeine Consumption? None Decaff Coffee Information not available 07/16/2023 How Much Tobacco Do You Chew? None Information not available 12/13/2018 What Type Of Diet Are You Following? REGULAR Information not available 12/13/2018 Which Illicit Or Recreational Drugs Have You Used? None Information not available 12/13/2018 Do You Take Precautions To Prevent Distracted Driving? Yes Information not available 12/13/2018 How Often Do You Need To Have Someone Help You When You Read Instructions, Pamphlets, Or Other Written Material From Your Doctor Or Pharmacy? Never Information not available 12/13/2018 Have You Served In The ? No Information not available 12/13/2018 Have You Or Anyone In Your Household Had Any Of The Following Symptoms In The Last 14 Days: Sore Throat, Cough, Chills, Body Aches For Unknown Reasons, Shortness Of Breath For Unknown Reasons, Loss Of Smell, Loss Of Taste, Fever At Or Greater Than 100 Degrees Fahrenheit? No [email or web address] Information not available 05/03/2020 Are You Or Anyone In Your Household A Health Care Provider Or Emergency Responder? No Information not available 05/03/2020 To The Best Of Your Knowledge Have You Been In Close Proximity To Any Individual Who Tested Positive For COVID-19? No [email or web address] Information not available 05/03/2020 What Was The Date Of Your Most Recent Tobacco Screening? 07/16/2024 [email or web address] Information not available 07/16/2024 How Many Children Do You Have? 2 Keya Information not available 05/04/2021 Do You Use Protection During Sex? No [email or web address] Information not available 05/03/2020 Do You Use Your Seat Belt Or Car Seat Routinely? Yes Information not available 05/04/2021 Are You Sexually Active? Yes (Brie) Information not available 07/16/2023 Do You Have Smoke And Carbon Monoxide Detectors In Your Home? Yes Information not available 05/04/2021 At What Age Did You Start Smoking Tobacco? 0 Information not available 12/13/2018 Are You Passively Exposed To Smoke? No [email or web address] Information not available 05/03/2020 How Much Tobacco Do You Smoke? No Information not available 12/13/2018 Do You Use Sunscreen Routinely? Yes Information not available 12/13/2018 How Many Years Have You Smoked Tobacco? 0 Information not available 12/13/2018 Sex: Unknown Functional Status Question Answer Note LastModified by Organizat ion Details LastModified Time Do you use any illicit or recreational drugs? No Information not available 05/04/2021 Do you or have you ever used any other forms of tobacco or nicotine? No Information not available 05/04/2021 What is your level of alcohol consumption? Occasional Information not available 02/02/2014 Do you or have you ever used smokeless tobacco? Never used smokeless tobacco Information not available 12/13/2018 Are you currently employed? Yes Information not available 02/02/2014 Are you able to walk? YESWOREST Information not available 05/04/2021 Are you able to care for yourself? 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 Never used electronic cigarettes Information not available 05/04/2021 What is your exercise level? Heavy daily daily); running; walking, climbing, lifting, hiking, lunges, sit-ups, push-ups [facility] Information not available 07/16/2024 Mental Status None recorded. Family History Relationship Description Onset Age of this Age Resolved Age Notes LastModified by Organization Details LastModified Time Paternal Grandmother Dementia [email or web address] Not available 12/13 11:16:23 Maternal Grandmother Dementia abolcun Not available 12/13 11:16:23 Father No current problems or disability [email or web address] s Not available 05/04/2021 11:13:44 Mother No current problems or disability [email or web address] s Not available 05/04/2021 11:13:44 Paternal Grandfather Harmful pattern of use of alcohol [email or web address] Not available 05/03 10:31:49 Maternal Grandfather Heart disease [email or web address] s Not available 05/04/2021 11:13:44 Maternal Aunt Malignant neoplasm of female breast [email or web address] s Not available 01/25/2022 15:23:36 Medical History Condition Response Acid Reflux (GERD) Y Gout Y Asthma Y Chicken Pox Y Immunizations Vaccine Type Date Status Note Provider Nam e and Address Organization Details Recorded Time Influenza, split virus, quadrivalent, preservative 7 completed Keiry Stoddard MA [facility] 06/28/2023 10:05:29 Influenza, split virus, trivalent, preservative 7 completed Not Available [facility] 10/15/2022 02:57:08 Influenza, MDCK, quadrivalent, PF 9 completed Not Available [facility] 10/15/2022 02:57:08 COVID-19, mRNA, LNP-S, PF, 100 mcg/0.5mL dose or 50 mcg/0.25mL dose 1 completed Not Available [facility] 10/15/2022 02:57:08 Influenza, split virus, quadrivalent, PF 6 completed Not Available [facility] 10/15/2022 02:57:08 COVID-19, mRNA, LNP-S, PF, 100 mcg/0.5mL dose or 50 mcg/0.25mL dose 1 completed Not Available [facility] 10/15/2022 02:57:08 Influenza, split virus, quadrivalent, PF 1 completed Not Available formerly [facility] 10/15/2022 02:57:08 Influenza, MDCK, quadrivalent, PF 0 completed Not Available formerly [facility] 10/15/2022 02:57:08 COVID-19, mRNA, LNP-S, PF, 100 mcg/0.5mL dose or 50 mcg/0.25mL dose 1 completed Not Available formerly [facility] 10/15/2022 02:57:08 Tdap 9 completed Not Available formerly [facility] 10/15/2022 02:57:08 Influenza, split virus, trivalent, PF 4 completed Not Available formerly [facility] 10/15/2022 02:57:08 COVID-19, mRNA, LNP-S, bivalent, PF, 50 mcg/0.5 mL or 25mcg/0.25 mL dose 2 completed Not Available formerly [facility] 10/15/2022 02:57:08 zoster recombinant 3 completed PROSPER Alex, [facility] 03/07/2023 10:47:50 zoster recombinant 3 completed PROSPER Alex, [facility] 03/07/2023 10:47:50 Influenza, split virus, quadrivalent, PF 3 completed PROSPER Alex, [facility] 03/07/2023 10:54:07 COVID-19, mRNA, LNP-S, PF, 50 mcg/0.5 mL 4 completed Chrissy andrade [facility] 01/18/2024 08:52:56 Influenza, MDCK, trivalent, PF 4 completed Chrissy andrade [facility] 01/15/2024 10:06:50 COVID-19, mRNA, LNP-S, PF, 50 mcg/0.5 mL 4 completed Chrissy andrade [facility] 01/18/2024 08:52:56 Pneumococcal conjugate PCV21, polysaccharide [id number] conjugate, PF 5 completed Marine Wooten MA null, [facility] 07/15/2024 15:06:56 Influenza, split virus, trivalent, PF 7 completed Not Available formerly [facility] 10/15/2022 02:57:08 Td (adult), 2 Lf tetanus toxoid, preservative free, adsorbed 7 completed Not Available [facility] 10/15/2022 02:57:08 Influenza, split virus, trivalent, preservative 9 completed Not Available [facility] 10/15/2022 02:57:08 Novel [id number], all formulations 0 completed Not Available [facility] 10/15/2022 02:57:08 Influenza, split virus, trivalent, preservative 2 completed Not Available [facility] 10/15/2022 02:57:08 Influenza, split virus, quadrivalent, PF 2 completed Erin Ontiveros MD [address], [address], [facility] 01/25/2022 15:33:27 Past Encounters Encounter ID Performer Location Encounter Start Date Encounter Closed Date Diagnosis/Indication Diagnosis SNOMED-CT Code Diagnosis ICD10 Code Diagnosis Note [id number] autoEComm erce [address] [facility] [place] [address] 08/20/2006 00:00:00 [id number] autoEComm erce [address] [facility],[place] [address] [place] [address] 08/30/2006 00:00:00 [id number] autoEComm erce [address] [facility] [address] [place] [address] 09/18/2006 00:00:00 [id number] autoEComm erce [address] [facility] [address] [place] [address] 03/07/2007 00:00:00 [id number] autoEComm erce [address] [facility] [address] [place] [address] 05/15/2007 00:00:00 [id number] auto[facility]Comm erce [address] [address] [place] [address] 07/02/2007 00:00:00 [id number] autoEComm erce [address] [address] [place] [address] 07/23/2007 00:00:00 [id number] autoEComm erce [address] [address] [place] [address] 02/28/2008 00:00:00 [id number] autoEComm erce [address] [facility] [address],[place] [address] [place] [address] 05/15/2008 00:00:00 [id number] autoEComm erce [address] [facility] [address],[place] [address] [place] [address] 09/02/2008 00:00:00 [id number] autoEComm erce [address] [facility] [address],[place] [address] [place] [address] 02/10/2009 00:00:00 [id number] autoEComm erce [address] [facility],[place] [address] [place] [address] 04/05/2009 00:00:00 [id number] autoEComm erce [address] [facility] [address],[place] [address] [place] [address] 10/15/2009 00:00:00 [id number] autoEComm erce [address] [facility],[place] [address] [place] [address] 09/13/2010 00:00:00 [id number] autoEComm erce [address] [facility] [address] [place] [address] 09/07/2011 00:00:00 [id number] autoEComm erce [address] [facility] [address],[place] [address] [place] [address] 01/29/2012 00:00:00 [id number] autoEComm erce [address] [facility],[place] [address] [place] [address] 07/31/2012 00:00:00 [id number] autoEComm erce [address] [facility] [address] Jose romano, [place] [address] 11/07/2012 00:00:00 [id number] autoEComm nithya [address] [place] [address],[place] [address] Jose romano, [place] [address] 01/30/2013 00:00:00 [id number] autoEComm nithya [address] [facility],[place] [address] [place] [address] 06/11/2013 00:00:00 [id number] Darrick Moreland MD Main Office [address] [address] [place] [address] 02/02/2014 15:35:57 02/02/2014 16:44:33 Adult health examination [id number] Needs infl uenza immunization 313501743 Allergic rhinitis 66383172 Inflammati on of rotator cuff tendon 701697104 Hyperlipidemia 29629601 Fatigue 82955551 [id number] Lior Ocampo MD Main Office [address] [address] [place] [address] 08/29/2014 10:52:55 08/29/2014 11:51:29 Otalgia 82261681 advised using ibuprofen before sleep and putting a small amount of cortisone cream around the outside of his ear. [id number] Katie Woods PA-C Main Office [address] [address] [place] [address] 05/05/2015 16:06:58 05/05/2015 16:31:20 Acute sinusitis 87138288 J01.00 Start Doxycyclin e 100 mg BID for 7 days. Sudafed or Sudafed PE for decongesti on, nasal saline solution BID and Flonase spray qd. [id number] Darrick Moreland MD Main Office [address] [address] [place] [address] 12/13/2018 10:37:49 12/13/2018 12:20:56 Adult health examination 474740273 Z00.00 Administra tion of viral vaccine 56077725 Z23 Hyperlipidemia 88564397 E78.5 Fatigue 81016016 R53.83 Primary er ectile dysfunction 033563008 N52.9 Allergic rhinitis 361069 04 J30.9 Gastroesop hageal reflux disease 136234547 K21.9 Normal bod y mass index 90008643 Z68.24 [id number] Darrick Moreland MD [facility] [address] [address] [place] [address] 12/08/2019 13:26:33 12/08/2019 15:20:40 Exposure to viral disease 6451395485 91309 Z20.828 [id number] Wing Casper MD Main Office [address] [address] [place] [address] 05/03/2020 10:24:12 05/03/2020 11:57:30 Adult health examination 987196320 Z00.00 Screening for malignant neoplasm of colon 813054673 Z12.11 pt requested to get ahead - he will make eval for next summer Allergic rhinitis 381539 04 J30.9 stable lately, cont meds as dir Insomnia 945878309 G47.0 0 better lately Hemorrhoids 21574477 K64 .9 stable lately, but infreq bothers him - no sig relief c prepH - trial c steroid cream prn - if no sig help then get gi eval as above Impacted c erumen in left ear 0897402365 057289 H61.22 mild - mod L ear [id number] Erin Ontiveros MD Main Office [address] [place] [address] 05/04/2021 10:45:03 05/04/2021 12:19:18 Adult health examination 918456653 Z00.00 Patient was counseled on healthy diet, exercise and nutrition due to Body mass index is 22.6 kg/m? ? ?. Last PSADate:Re sult:Plan: screen per USPTF guideline Last Colonoscop y:Date: 01/12/21Resu lt: 1, 7 mm polypPlan: Repeat 5 yrs per GI Vaccines:T dAP: 12/13/18Zost er: script providedPC V13: not [id number]: not dueInfluen za: 02/10/21Cov id: 08/17/20, 09/14/20, 03/31/21 Routine labs today Immunizati on status reviewed. Will screen based on risk factors. Regular dental and ophtho care advised as well as seat belt and sunscreen use. Distracted driving discussed. Medication reconciled . Hepatitis C screening 41 4368547 Z11.59 Varicella vaccination 68 338428 Z23 Fatigue 45177222 R53.83 Hyperlipidemia 84159589 E78.5 Primary er ectile dysfunction 730695722 N52.9 Allergic rhinitis 849298 04 J30.9 [id number] Lior Ocampo MD Main Office [address] [address] [facility] [place] [address] 01/09/2022 12:40:51 01/09/2022 13:25:27 Scrotal mass 63880654 N50.89 Nontender mass palpable on the L>R scrotum. Doubt infection since no symptoms and in a monogamous relationsh ip. Possible epididymal cysts vs cystocele. Will get an U/S and refer him to urology. [id number] Erin Ontiveros MD Main Office [address] [address] [place] [address] 01/25/2022 14:55:37 01/25/2022 15:54:41 Primary erectile dysfunction 489021353 N52.9 Needs infl uenza immunization 141832925 Z23 Spermatocele 89649589 N4 3.40 Tenderness of nipple 225 184403 N64.4 [id number] Erin Ontiveros MD Main Office [address] [place] [address] 05/31/2022 09:01:43 05/31/2022 09:49:43 Adult health examination 447966403 Z00.00 Patient was counseled on healthy diet, exercise and nutrition due to Body mass index is 22.7 kg/m? ? ?. Last PSADate:Re sult:Plan: screen per USPTF guideline Last Colonoscop y:Date: 01/12/21Resu lt: 1, 7 mm polypPlan: Repeat 5 yrs per GI Vaccines:T dAP: 12/13/18Zost er rec: script providedPC V20: not dueInfluen za: 01/25/22Cov id: 08/17/20, 09/14/20, 03/31/21, 02/10/22 bivalent. Routine labs today Immunizati on status reviewed. Will screen based on risk factors. Regular dental and ophtho care advised as well as seat belt and sunscreen use. Distracted driving discussed. Medication reconciled . Varicella vaccination 68 625713 Z23 Fatigue 96335215 R53.83 Hyperlipidemia 99094417 E78.5 Prolactin level above reference range 555212030 R89.1 Abnormal testosterone 13 9414745 R94.7 Hemorrhoids 24557507 K64 .9 cont. conservati ve measures, will refer to gen surgery. [id number] BERONICA WRIGHT MD Main Office [address] [facility] [address] [place] [address] 01/11/2023 13:23:58 01/11/2023 13:54:58 Persistent cough 056033798 R05.3 - has been on-going for 10 day most likely due to recent COVId19 infection- physical exam was reassuring , will continue supportive treatment at this time- x-ray of the chest ordered to reassure patient no underlying cardiopulm onary disease- Tylenol OTC, not to exceed package insert for pain or fever q4-6h advised prn. Counselled on not exceeding more than 3g/day.- Throat Lozenges otc prn for sore throat- saltwater gargle- adequate hydration enforced- saline sprays- Also advised can use a teaspoon honey for cough- return precaution s given History of SARS-CoV-2 29 38664431 86447939 Z86.16 - diagnosed on 12/31 and patient was given paxlovid Plantar wa rt of right foot 4295687841 0168891 B07.0 - pt referred to podiatry- recommende d salactic acid OTC [id number] SONYA HINKLE Main Office [address] 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 [address] [place] [address] 06/28/2023 10:01:22 06/28/2023 10:30:28 Acute sinusitis 46890048 J01.90 Hydration, rest, tylenol or ibuprofen as needed, tea with honey, OTC cough meds as needed, nasal sinus rinses as needed. [id number] Erin Ontiveros MD Main Office [address] [facility] [address] [place] [address] 07/16/2023 10:11:19 07/16/2023 11:05:51 Adult health examination 843275359 Z00.00 Patient was counseled on healthy diet, exercise and nutrition due to Body mass index is 22.7 kg/m? ? ?. Last PSADate:Re sult:Plan: screen per USPTF guideline Last Colonoscop y:Date: 01/12/21Resu lt: 1, 7 mm polypPlan: Repeat 5 yrs per GI Vaccines:T dAP: 12/13/18Zost er rec: 06/15/22, 11/12/2022 PCV20: not dueInfluen za: 03/02/2023 Covid: 08/17/20, 09/14/20, 03/31/21, 02/10/22 bivalent,0 05/17/2023 Routine labs today Immunizati on status reviewed. Will screen based on risk factors. Regular dental and ophtho care advised as well as seat belt and sunscreen use. Distracted driving discussed. Medication reconciled . Fatigue 88837211 R53.83 Hyperlipidemia 68094317 E78.5 Snoring 48651737 R06.83 [id number] Lior Ocampo MD Main Office [address] [facility] [address] [place] [address] 09/17/2023 08:41:46 09/17/2023 09:04:15 Acute sinusitis 64977767 J01.90 hx of frequent sinus infection x1-2 times each year-has been taking zyrtec daily-symp toms of sinus pressure/p ain of frontal and maxillary sinuses, bilateral ear fullness, post nasal drip, cough-disc ussed to continue conservati ve measuremen ts; rest, hydration, OTC meds prn, nasal rinses etc-will provide course of z-pack [id number] Lior Ocampo MD [facility] [address] [place] [address] 09/27/2023 15:26:32 09/28/2023 11:54:12 Allergic rhinitis 38853784 J30.9 He will continue with Judy and flonase Nasal congestion 8768358 0 R09.81 Doubt bacterial sinus infection since he completed a course of zithromax. He will continue with flonase and Judy and take a medrol dose pack. I instructed him to call over the weekend if he worsens (I am this weekend) or send a message next week and we can consider another course of abx. [id number] Wing Casper MD [facility] [address] [address] 07/15/2024 14:21:46 07/15/2024 15:52:13 Contact dermatitis 21327964 L25.9 no recent poison suzanna exposure, but wonder if similar rxn to ? exposure to fiberglass will rx c pred taper [id number] Wing Casper MD Main Office [address] [address] 07/16/2024 14:04:18 07/16/2024 15:15:31 Adult health examination 159299526 Z00.00 colon utd - next 9.26 Contact dermatitis 12833 004 L25.9 no recent poison suzanna exposure, but wonder if similar rxn to ? 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 fol by endo q yr Insomnia 965167760 G47.0 0 not sleeping well lately on melatoninh ad sleep study - no yu but uses mouth guard - helpfultri al c gbn in place of melatonin Vitamin D deficiency 347 84592 E55.9 Nocturia 985634129 R35.1 Health Concerns Section Related Observation LastModified by Organization Detai ls LastModified Time None Recorded Concern Status LastModified by Organization Details LastModified Time None Recorded Advance Directives Directive Y: Payers Encounter Date Sequence Insurance Name Policy Number Policy Mason Covered Member ID Mason Member ID Guarantor Name 07/16/[address] [facility] (PPO) [id number] Brie Asif [id number] León Asif 09/17/[address] [facility] (PPO) [id number] Brie Asif [id number] León Asif 09/27/2023 1 [facility] (PPO) [id number] Brie Asif [id number] León Asfi 07/15/[address] [facility] (PPO) [id number] Brie Asif [id number] León Yfn Asif 07/16/[address] [facility] (PPO) [id number] Brie Asif [id number] León Yfn Asif Notes Date Note Type Note Provider Name and Address Organization Details Recorded Time 07/16/2023 text/html Here for PE ann barbosa Reviewed chronic medications and medical problems. Discussed screening guidelines as well as goals for fitness and weight management. Erin Ontiveros MD [address], [address], [facility] 07/16/2023 11:01:03 09/17/2023 text/html Sinusitis/Allerg yR eported bypatient.Location :maxillary Associated Symptoms:no fever; no hemoptysis; no difficulty breathing; no nausea or vomiting;headache forehead;sinus pain diffuse;sore throat;nasal discharge Quality:colored phlegm;productive cough Severity:does not limit daily activities; no frequent breathing through the mouth; no nosebleeds (epistaxis); no snoring Context:no recent upper respiratory infection León is a 52yr old M who presents for a productive cough, sinus pressure, and ear fullness x5-6 days. Has a hx of frequent sinus infections about x1-2 times a year in the spring/summer. Notes of taking zyrtec daily to help prevent the progression. Symptoms of post nasal drip, cough, sinus pain, ear fullness, and nasal discharge for the past week. Has been hydrating and using tea w/ honey. SONYA HINKLE [address] [address], [place], [address], [facility] [place] 09/17/2023 09:14:11 09/27/2023 text/html Seen last week (09/17/23) and treated with a z-pack and getting a little better but the last day has had dark nasal d/c and coughing a lot of mucous. He has seasonal allergies which seem particularly harsh this year. He was taking zyrtec but switched to Judy this week to see if that would work any better. He has also been using flonase. Lior Ocampo MD [address] [address], [place], [address], [facility] [place] 09/27/2023 16:56:42 07/15/2024 text/html Patient c/o rash on inside of right arm (from wrist to elbow), face, ears, and around the head x 4 days. Symptoms include itchiness.He believes he came into contact with poison suzanna/oak/sumac.Taki ng fexofenadine daily.Patient will be traveling to the [facility] in less than a week. 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 Rao Woods PA-C [address] [address], [place], [address], [facility] 07/16/2024 15:53:29
== END 2024-09-30 13:23 | disposition home or self-care (01) ==
LOC: HO.ENCR 13:00
PROVIDERS: PCP Family Medicine; Visit Provider Internal Medicine Endocrinology, Diabetes & Metabolism
DX: D35.2 Benign neoplasm of pituitary gland (principal)
CPT/HCPCS: 99213

== ENCOUNTER → 2024-12-12 08:57 | Outpatient (BNV) | payer OTHER, SELFPAY | PROVIDERS: PCP Family Medicine; Visit Provider Radiology Diagnostic Radiology | DX: D35.2 Benign neoplasm of pituitary gland (principal) | CPT/HCPCS: 70553 ==

== ENCOUNTER 2024-12-12 09:33 | Outpatient (REF) | payer OTHER, SELFPAY ==
--- NOTE | ~2024-12-12 | MR_ITS ---
EXAMINATION: MR BRAIN PITUITARY PROTOCOL WITHOUT AND WITH CONTRAST CLINICAL INFORMATION: Benign neoplasm of pituitary gland. COMPARISON: None available. TECHNIQUE: Multiplanar, multisequence MRI of the brain pituitary protocol was obtained before and after the intravenous administration of 4.0 mL gadolinium based without reported immediate complications (Gadavist). FINDINGS: The pituitary gland measures 10 x 7 x 4 mm with a superior concave deformity. No focal enhancing lesion or focal delayed enhancing lesion. Pituitary stalk measures less than 2 mm maximal thickness and is midline. The optic chiasm is intact and normal. The flow-void signal within the cavernous supraclinoid segments and terminus segments of the ICAs is normal. No enhancing lesion in the cavernous sinuses for the Mildred scabies. No abnormal enhancement in the intra-axial or the extra-axial compartment of the cranium based upon the axial T1 postcontrast sequence. No restricted diffusion. No acute intracranial hemorrhage, mass effect, midline shift, hydrocephalus or herniation. Beverly-white matter differentiation is normal. 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 Normal position of the cerebellar tonsils. Flow-void signal within the main vessels is normal. Retention cyst, left maxillary sinus. MR/MR head/brain wo/w con IMPRESSION: Normal pituitary gland. No abnormal enhancement or acute brain abnormality. Electronically signed by: Sergio Torres MD 12/12/2024 10:43 AM EDT
--- OUTSIDE RECORDS SUMMARY | 2024-12-12 09:42 | XMS_ITS | Patient Health Record ---
Author Organization [facility] Address [address] [place] [address] Care Team Providers Care Rural Mail Contractor Name Role Phone Tyrell Stovall Primary Care Provider Unavailabl e Black, Mara Unavailable [phone] Allergies Allergen (clinical drug ingredient) Drug/Non Drug [...] days then stop for 3 weeks repeat cycle; Duration: 90 days PRN 06/06/2023 Not-Chris ing Melatonin 3-5MG Active ZyrTEC 5MG Not-Taking Benadryl [...] Problem Acquired hammer toe of right foot (6478655540269807 ) Other hammer toe(s) (acquired), right foot (M20.41) Active confirmed Response to treatment - Improvement Problem Localized, primary osteoarthritis of the ankle and/or foot (452624637) Arthritis of joint of lesser toe, right (M19.071) Active confirmed Vital Signs Blood pressure diastolic 70 mm Hg 07/01/2024 Height 5FT 10IN in 07/01/2024 Blood pressure systolic 126 mm Hg 07/01/2024 Weight 155 lbs 07/01/2024 BMI 22.24 kg/m2 07/01/2024 Encounters [facility]counter [facility] Date [facility] [address] [facility]/27/[facility] Mara Black Pain in right toe(s) M79.674 ; Tinea unguium B35.1 ; Other hammer toe(s) (acquired), right foot M20.41 ; Arthritis of joint of lesser toe, right M19.071 and Pain in left toe(s) M79.675 [facility] [address] 07/01/2024 Mara Black Pain in right toe(s) M79.674 and Tinea unguium B35.1 Assessments Encounter Date Diagnosis (ICD Code) Assessment Notes Treatment Notes Treatment Clinical Notes Section Notes 02/27/2024 Pain in right toe(s) (ICD-10 - M79.674) 07/01/2024 Pain in right toe(s) (ICD-10 - M79.674) 07/01/2024 Tinea unguium (ICD-10 - B35.1) 02/27/2024 Tinea unguium (ICD-10 - B35.1) 02/27/2024 [...] Insured Coverage Start Date Coverage End Date [facility] [address] [place] [id number] Asif Spouse - patient is the spouse of the insured Medical (General) History Medical History History ICD Code covid-19 Gout Warts Chicken pox Surgical History Surgery Date(Month/Year) hemorrhoidectomy 07/2022
--- OUTSIDE RECORDS SUMMARY | 2024-12-12 09:42 | XMS_ITS | Encounter Summary ---
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 Name Role Phone Tyrell Stovall MD Primary Care Provider [phone] Encounter Details Date Type Department Care Team (Late st Contact Info) Description 10/14/2022 Ophth Exam [facility] Emergency Department [address] [place] [address] Ari Miller MD [address] [place] [address] [email or web address] Social History Tobacco Use Types Packs/Day Years [...] 5:26 PM EDT Alisha Wen RN * Bruno Suicide Severity Rating Scale (Screener/Recent Self-Report) Question [...] on filedocumented in this encounter Care Teams Boom Crane Operator Relationship Specialty Start Date End Date Tyrell Stovall MD [address] [address] PCP - General Family Medicine 10/14/22 documented as of this encounter Additional Source Comments The information contained in this document represents components of the legal health record. It is not the complete legal health record.[facility]
--- OUTSIDE RECORDS SUMMARY | 2024-12-12 09:42 | XMS_ITS | Clinical Summary ---
Author Organization [facility] Address [address] [place] [address] Care Team Providers Care Guest Services Officer Name Role Phone Unavailable Primary Care Provider [...] 11/24/2015 Fecal DNA 11/24/2015 Flexible Sigmoidoscopy 11/24/2015 Imm-Pneumococcal 50+ (1 of 1 - PCV) 2020 Imm-Zoster, Recombinant (1 of 2) 2020 Yov-[id number]-30 (3 - season) 2024 021, 08/17/2020 Alcohol and Drug Screen 05/14/2024 Depression Annual Screen 05/14/2024 Imm-Influenza (#1) 2025 01/28/2020, 0 01/23/2019, 02/07/2017, Additional history exists Imm-DTaP/Tdap/Td (2 - Td or Tdap) 12/13/2028 019, 05/14/2006 Insurance [facility] Member Subscriber Plan / Payer (Ef fective 2015-Present) Name:León Asif Relation to Subscriber:Self Name:León Asif Payer ID:[id number] Group ID:Not on file Type:Indemnity Address: [facility] [address] [place] [address]
--- OUTSIDE RECORDS SUMMARY | 2024-12-12 09:42 | XMS_ITS | Clinical Summary ---
Author Organization [facility] Address [address] [place] [address] Care Team Providers Care Roving Inspector Name Role Phone No, Pcp TEST TECH Primary Care Provider Unavailabl e Social History [...] Adults 18 yrs or above (or HM Modifier)([facility]) 1988 Hepatitis C Virus Infection in Adolescents and Adults: Screening (or Modifier) ([facility]) 1988 SDVT Screening Reminder: Fiona murphy for all adults ([facility]) 1988 Tobacco Smoking Cessation: i n Adults excluding Women: Behavioral and Pharmacotherapy Interventions ([facility]) 1988 Colorectal Cancer Screening 45 -75 Yrs (or HM Modifier) 11/24/2015 Colorectal Cancer: FLEXIBLE SIGMOIDOSCOPY Screening every 5 yrs 11/24/2015 Colorectal Cancer: Fecal Immunochemical Test (FIT) Annually [facility] 11/24/2015 Colorectal Cancer: High-sens itivity gFOBT Screening Annually [facility] 11/24/2015 Colorectal Cancer: Stool Col oguard Screening every 3 yrs 11/24/2015 Colorectal Cancer:CT Colonog bartolome Screening every 5 yrs 11/24/2015 Pneumococcal Vaccination Scr eening: Patients 50+ yrs of age ([facility]) (1 of 1 - PCV) 2020 Zoster/Shingles Vaccine Seri es Screening: Adults aged 18+ yrs (or HM Modifiers)([facility]) (1 of 2) 2020 COVID-19 Vaccine Screening: Initial Series and Booster Status ([facility]) (2023- season) 2024 03/31/2021, 09/14/2020, 08/17/2020 Flu Vaccination: Yearly for ages 18mos through 64 years (or Modifier)([facility]) 12/12/2024 01/28/2020, 9 DTaP/Tdap/Td Vaccines ([facility]) (2 - Td or Tdap) 12/13/2028 12/13/2018 Medical Devices Not on file Insurance [facility] Care Teams Roving Inspector Relationship Specialty Start Date End Date No, Pcp, TEST TECH N/A Do not use PCP - General Family Medicine 06/06/20
== END 2024-12-12 09:34 | disposition home or self-care (01) ==
LOC: HO.MRI 09:33
PROVIDERS: PCP Family Medicine; Visit Provider Internal Medicine Endocrinology, Diabetes & Metabolism
DX: D35.2 Benign neoplasm of pituitary gland (principal)
CPT/HCPCS: 70553; A9585